=== PATIENT | male | born 1935 | race Caucasian/White ===

== ENCOUNTER → 2019-08-22 14:11 | Outpatient (BNVA) | payer MEDICARE, SELFPAY | PROVIDERS: Family Provider Nurse Practitioner; PCP Nurse Practitioner Family; Visit Provider Nurse Practitioner Family | DX: I10 Essential (primary) hypertension (principal); E78.5 Hyperlipidemia, unspecified | CPT/HCPCS: 80053; 80061; 84443; 85025 ==

== ENCOUNTER → 2020-01-24 09:25 | Outpatient (BNVA) | payer MEDICARE, SELFPAY | PROVIDERS: Family Provider Nurse Practitioner; PCP Nurse Practitioner Family; Visit Provider Nurse Practitioner | DX: G89.29 Other chronic pain (principal); E78.5 Hyperlipidemia, unspecified; I10 Essential (primary) hypertension; M79.641 Pain in right hand; Z98.1 Arthrodesis status; Z96.611 Presence of right artificial shoulder joint; M19.041 Primary osteoarthritis, right hand; M19.021 Primary osteoarthritis, right elbow; M54.2 Cervicalgia; M25.511 Pain in right shoulder; M25.521 Pain in right elbow | CPT/HCPCS: 72040; 73030; 73080; 73130; 80053; 80061; 81000; 85025 ==

== ENCOUNTER 2020-03-08 12:45 | Outpatient (CLI) | payer MEDICARE, SELFPAY ==
--- NOTE | 2020-03-08 12:45 | USCV_ITS ---
Silvio Chavira Age: 84 Gender: M : 1935 Exam Date: 03/08/2020 12:46 Ordering Phys: Madelin Bellamy Technologist: Tati Ashby [place] [facility] [place]: SOB WITH ACTIVITY BP: / HR: 68 Rhythm: Sinus Technical Quality: Adequate MEASUREMENTS (Male / Female) Normal Values 2D ECHO LV Diastolic Diameter PLAX 4.8 cm 4.2 - 5.9 / 3.9 - 5.3 cm LV Systolic Diameter PLAX 3.0 cm LV Chamber Size 3.2 cm IVS Diastolic Thickness 1.1 cm 0.6 - 1.0 / 0.6 - 0.9 cm IVS Systolic Thickness 1.8 cm LVPW Diastolic Thickness 1.5 cm 0.6 - 1.0 / 0.6 - 0.9 cm LVPW Systolic Thickness 1.5 cm RV Chamber Size 2.8 cm LVOT Diameter 2.0 cm LV Ejection Fraction 2D Teich 68.3 % LV Ejection Fraction MOD 2C 46.7 % LV Ejection Fraction 2C AL 49.7 % LA Diameter 2.9 cm LA Width 3.3 cm LA Height 3.3 cm RA Width 3.2 cm RA Height 3.4 cm Aorta at Sinotubular Diameter 4.1 cm M-MODE LV Diastolic Diameter MM 6.1 cm 4.2 - 5.9 / 3.9 - 5.3 cm LV Systolic Diameter MM 3.9 cm LV Ejection Fraction MM Teich 64.3 % IVS Diastolic Thickness MM 1.2 cm 0.6 - 1.0 / 0.6 - 0.9 cm IVS Systolic Thickness MM 1.7 cm LVPW Diastolic Thickness MM 0.8 cm 0.6 - 1.0 / 0.6 - 0.9 cm LVPW Systolic Thickness MM 1.1 cm RV Diastolic Diameter MM 1.5 cm Aortic Annulus Diameter 4.0 cm LA Ao Ratio MM 0.7 MV E Point Septal Separation 0.6 cm FINDINGS Left Ventricle Normal left ventricular cavity size. Increased left ventricular wall thickness. Moderate concentric left ventricular hypertrophy. Normal left ventricular systolic function. Left ventricular ejection fraction is estimated at 60 %. No diagnostic regional wall motion normality. Right Ventricle Normal right ventricular size and systolic function. Right Atrium Normal right atrial size. Right atrial pressure estimated at 3 mm Hg. Left Atrium Mildly increased left atrial size. Mitral Valve Mild mitral annular calcification. Moderately thickened mitral valve. Aortic Valve Mildly thickened and sclerotic trileaflet aortic valve. Tricuspid Valve Structurally normal tricuspid valve. Pulmonic Valve Structurally normal pulmonic valve. Pericardium Trivial pericardial effusion noted along right ventricular free wall. Aorta Normal-sized aortic root. CONCLUSIONS 1. This is a limited echocardiogram. 2. Normal left ventricular cavity size. Moderate concentric left ventricular hypertrophy. Normal left ventricular systolic function. Left ventricular ejection fraction is estimated at 60 %. No diagnostic regional wall motion normality. 3. Mildly increased left atrial size. 4. Right atrial pressure estimated at 3 mm Hg. 5. Trivial pericardial effusion noted along right ventricular free wall. 6. When compared to previous echocardiogram dated 02/25/2019, there is trivial pericardial effusion now. Chanel Irvin MD (Electronically Signed) Final Date: 11 March 2020 17:22 S
== END 2020-03-08 12:46 | disposition home or self-care (01) ==
LOC: RAD 12:47
PROVIDERS: PCP Nurse Practitioner; Visit Provider Nurse Practitioner
DX: I31.3 Pericardial effusion (noninflammatory) (principal); I51.7 Cardiomegaly; R06.02 Shortness of breath
CPT/HCPCS: 93308

== ENCOUNTER → 2020-06-19 15:28 | Outpatient (BNVA) | payer MEDICARE, SELFPAY | PROVIDERS: PCP Nurse Practitioner; Visit Provider Nurse Practitioner Family | DX: Z11.59 Encounter for screening for other viral diseases (principal); R06.02 Shortness of breath | CPT/HCPCS: 87635 ==

== ENCOUNTER 2020-06-21 11:20 | Emergency (ER) | payer MEDICARE, SELFPAY ==
[2020-06-21 11:26] VITALS: BP 208/98; PULSE 71; RESP 18; TEMP 36.3; O2SAT 98; BMI 21.2
[2020-06-21 12:30] VITALS: O2SAT 90
--- NOTE | 2020-06-21 13:37 | XR_ITS ---
WS: [id number] XR chest 1V portable [id number] REASON FOR EXAM: syncope FINDINGS: Compared to the previous examination of 02/24/2019 no significant interval change is identified. Tortuous ectatic thoracic aorta. Enlarged heart. No active pulmonary parenchymal or pleural disease is noted. Degenerative arthropathy in the shoulders and degenerative spondylosis, moderate in the mid and lower thoracic spine. XR/XR chest 1V portable [id number] IMPRESSION: No acute chest abnormality identified.
[2020-06-21 15:01] LABS: Basophils % 0.2 %; Eosinophils % 0.7 %; Hemoglobin 15.4 g/dL (11.7-16.6); Lymphocytes # 1.4 10^3/uL (0.8-4.8); Lymphocytes % 31.9 %; Mean Corpuscular HGB Conc 33.5 g/dL (30.0-36.0); Mean Corpuscular Hemoglobin 33.2 pg (28.0-34.0); Mean Corpuscular Volume 99.1 fL (80-94); Mean Platelet Volume 10.4 fL (7.4-10.4); Monocytes # 0.5 10^3/uL (0.2-0.9); Monocytes % 10.3 %; Neutrophils # 2.53 10^3/uL (1.8-7.7); Neutrophils % 56.9 %; Nucleated Red Blood Cells % 0 %; Platelet Count 158 10^3/cmm (130-400); Red Blood Count 4.64 10^6/uL (4.1-5.3); Red Cell Distribution Width 13.3 % (12.1-15.1); White Blood Count 4.5 10^3/uL (4.0-10.0)
[2020-06-21 15:20] LABS: D Dimer 0.56 ug/mIFEU (0-0.59)
[2020-06-21 15:22] LABS: Alanine Aminotransferase 24 U/L (0-41); Albumin Level 4.4 g/dL (3.5-5.2); Alkaline Phosphatase 69 IU/L (40-130); Anion Gap 14.3 (5-19); Aspartate Amino Transferase 26 U/L (0-40); Blood Urea Nitrogen 17 mg/dL (8-23); Calcium 9.3 mg/dL (8.5-10.5); Carbon Dioxide 30 mmol/L (22-29); Chloride 101 mmol/L (98-107); Globulin 2.6 g/dL (1.3-4.6); Glucose 113 mg/dL (65-115); Lactate (Lactic Acid level) 1.5 mmol/L (0.5-2.2); Osmolality Calculated 294 mOsm/kg (285-295); Potassium 4.3 mmol/L (3.5-5.1); Sodium 141 mmol/L (136-145); Total Bilirubin 1.8 mg/dL (0.15-1.2)
[2020-06-21 15:23] VITALS: O2SAT 95
[2020-06-21 15:52] LABS: Fibrinogen 272 mg/dL (174-498)
[2020-06-21 15:54] LABS: C Reactive Protein 0.3 mg/L (0.0-4.9); Ferritin 119 ng/mL (30-400)
--- NOTE | 2020-06-21 17:40 | ED_ITS ---
HPI - COVID General: Chief Complaint: COVID symptoms Stated Complaint: cough, sob, aches, nausea Time Seen by Provider: 06/21/20 13:54 Triage information: No fever, cough or shortness of breath . No known COVID + exposure last 14 days History of Present Illness: HPI Narrative: This patient is an 84-year-old gentleman who presents today with concerns for Covid. He was tested on Wednesday at the [facility] and was expecting test results today. His family brought him in because he is having worsening shortness of breath. 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 He is not sure when he might of contracted it but he has been around his grandson who is had some cold symptoms. MD complaint: has COVID symptoms Prior covid testing: yes, results pending at [facility] location Prior testing date: 06/19/20 COVID 19 common symptoms: positive non-productive cough, dyspnea, fatigue and headache(s); negative nausea or vomiting COVID 19 other sytmptoms: negative chest pain Onset (ago): day(s) (4) COVID Results: No Data to Display Review of Systems General: Reports: 10 or more systems reviewed and unremarkable except in HPI and below Const: Reports: fatigue Eyes: Denies: change in vision ENMT: Denies: odynophagia Card: Denies: chest pain or swelling of feet/ankles Resp: Reports: dyspnea and non-productive cough GI: Denies: abdominal pain, nausea or vomiting : Denies: flank pain Musc: Denies: neck pain or back pain Skin/Breast: Denies: rash Neuro: Reports: headache(s) Jimmy/Lymph: Denies: easy bruising or easy bleeding PFS ED PFSH: Medical History (Updated 06/21/20 @ 17:42 by Haley Corado MD) High cholesterol Hypertension Physical Exam Const: COMMON NORMALS: no acute distress, patient oriented x3, no limitations and alert GENERAL APPEARANCE: cooperative and comfortable HENMT: HEAD & SCALP: normal to inspection FACE & SINUS: normal facial exam Eye: GENERAL EYE: appearance normal, both eyes and all related structures Neck/C-Spine: COMMON NORMALS: supple, no meningeal signs and no JVD Chest: COMMONS NORMALS: normal inspection of the chest Resp: COMMON NORMALS: normal respiratory effort, No use of accessory muscles and clear to auscultation bilaterally AUSCULTATION: clear to auscultation bilaterally Cardio: COMMON NORMALS: no JVD, regular rate, regular rhythm and No murmurs present (Cardio) RATE: regular rate RHYTHM: regular rhythm GI: COMMON NORMALS: Normal to inspection, nondistended, normoactive bowel sounds present, Soft to palpation and non-tender INSPECTION: Yes normal to inspection AUSCULTATION: Yes normoactive bowel sounds PALPATION: Yes Soft to palpation Back/Pelvis: COMMON NORMALS: thoracic and lumbar spine normal to inspection Extremity: COMMON NORMALS: normal to inspection Neuro: COMMON NORMALS: patient oriented x3, moves all extremities, no focal motor deficits and no sensory deficits noted SENSORIUM/ORIENTATION: Yes alert MENINGEAL SIGNS: Yes no meningeal signs Psych: COMMON NORMALS: mental status grossly normal, cooperative and normal affect Skin: COMMON NORMALS: no rashes or lesions noted and turgor normal GENERAL SKIN EXAM: no rashes or lesions noted and turgor normal Course ED course: Patient's room air sat is 99 to 100%. He is awake, alert. He is in no distress. He is afebrile. We attempted to get the test results from the [facility] but they had closed for the day. There is no record of the test or test results in the [facility] system. His chest x-ray is clear. Labs are quite u nremarkable. He looks quite well. I discussed with he and his [id number] that we should consider him a person under investigation and treat him as though he were positive. Although is not requiring oxygen at this time I will send him home with oxygen as he is early in the course and may worsen. I am also can put him on dexamethasone. He will continue to self isolate and will follow up with his primary care provider for test results and further management. We discussed return precautions including inability to keep the oxygen saturation over 90 even with as much as 6 L of oxygen. Vital Signs: Vital signs: Vital Signs Temperature 97.4 F L 06/21/20 11:26 Pulse Rate 71 06/21/20 11:26 Respiratory Rate 18 06/21/20 11:26 Blood Pressure 208/98 06/21/20 11:26 Pulse Oximetry 95 06/21/20 15:23 [facility] - COVID Lab Data Result diagrams: 06/21/20 14:45 06/21/20 14:45 Labs: Lab Results 06/21/20 06/21/20 06/21/20 Range/Units 14:45 14:45 14:45 WBC 4.5 (4.0-10.0) 10^3/uL RBC 4.64 (4.1-5.3) 10^6/uL Hgb 15.4 (11.7-16.6) g/dL Hct 46.0 (42.0-52.0) % MCV 99.1 H (80-94) fL MCH 33.2 (28.0-34.0) pg MCHC 33.5 (30.0-36.0) g/dL RDW 13.3 (12.1-15.1) % Plt Count 158 (130-400) 10^3/cmm MPV 10.4 (7.4-10.4) fL Neut % (Auto) 56.9 % Lymph % (Auto) 31.9 % Harper % (Auto) 10.3 % Eos % (Auto) 0.7 % Baso % (Auto) 0.2 % Neut # (Auto) 2.53 (1.8-7.7) 10^3/uL Lymph # (Auto) 1.4 (0.8-4.8) 10^3/uL Harper # (Auto) 0.5 (0.2-0.9) 10^3/uL Eos # (Auto) 0.0 (0.0-0.8) 10^3/uL Baso # (Auto) 0.0 (0.0-0.1) 10^3/uL Nucleated RBC % (auto) 0 % Nucleated RBCs # 0.0 /100WBC Fibrinogen (174-498) mg/dL D-Dimer 0.56 (0-0.59) ug/mIFEU Sodium 141 (136-145) mmol/L Potassium 4.3 (3.5-5.1) mmol/L Chloride 101 (98-107) mmol/L Carbon Dioxide 30 H (22-29) mmol/L Anion Gap 14.3 (5-19) BUN 17 (8-23) mg/dL Creatinine 0.9 (0.7-1.2) mg/dL GFR Calculation Not Reportable Glucose 113 (65-115) mg/dL Calculated Osmolality 294 (285-295) mOsm/kg Lactate (0.5-2.2) mmol/L Calcium 9.3 (8.5-10.5) mg/dL Ferritin (30-400) ng/mL Total Bilirubin 1.8 H (0.15-1.2) mg/dL AST 26 (0-40) U/L ALT 24 (0-41) U/L Alkaline Phosphatase 69 (40-130) IU/L C-Reactive Protein (0.0-4.9) mg/L Total Protein 7.0 (6.6-8.7) g/dL Albumin 4.4 (3.5-5.2) g/dL Globulin 2.6 (1.3-4.6) g/dL 06/21/20 06/21/20 06/21/20 Range/Units 14:45 14:45 14:45 WBC (4.0-10.0) 10^3/uL RBC (4.1-5.3) 10^6/uL Hgb (11.7-16.6) g/dL Hct (42.0-52.0) % MCV (80-94) fL MCH (28.0-34.0) pg MCHC (30.0-36.0) g/dL RDW (12.1-15.1) % Plt Count (130-400) 10^3/cmm MPV (7.4-10.4) fL Neut % (Auto) % Lymph % (Auto) % Harper % (Auto) % Eos % (Auto) % Baso % (Auto) % Neut # (Auto) (1.8-7.7) 10^3/uL Lymph # (Auto) (0.8-4.8) 10^3/uL Harper # (Auto) (0.2-0.9) 10^3/uL Eos # (Auto) (0.0-0.8) 10^3/uL Baso # (Auto) (0.0-0.1) 10^3/uL Nucleated RBC % (auto) % Nucleated RBCs # /100WBC Fibrinogen 272 (174-498) mg/dL D-Dimer (0-0.59) ug/mIFEU Sodium (136-145) mmol/L Potassium (3.5-5.1) mmol/L Chloride (98-107) mmol/L Carbon Dioxide (22-29) mmol/L Anion Gap (5-19) BUN (8-23) mg/dL Creatinine (0.7-1.2) mg/dL GFR Calculation Glucose (65-115) mg/dL Calculated Osmolality (285-295) mOsm/kg Lactate 1.5 (0.5-2.2) mmol/L Calcium (8.5-10.5) mg/dL Ferritin 119 (30-400) ng/mL Total Bilirubin (0.15-1.2) mg/dL AST (0-40) U/L ALT (0-41) U/L Alkaline Phosphatase (40-130) IU/L C-Reactive Protein 0.3 (0.0-4.9) mg/L Total Protein (6.6-8.7) g/dL Albumin (3.5-5.2) g/dL Globulin (1.3-4.6) g/dL COVID Results: No Data to Display Discharge Plan Discharge Patient Disposition: Home Clinical Impression: Suspected severe acute respiratory syndrome coronavirus 2 (SARS-CoV-2) infection Condition: Stable Prescriptions: New dexamethasone 6 mg tablet 6 mg PO DAILY Qty: 7 RF: 0 No Action Multiple Vitamins Tablet 1 tab PO DAILY RF: 0 azithromycin 250 mg tablet See Rx Instructions .ROUTE .COMPLEX RF: 0 simvastatin 10 mg tablet 10 mg PO DAILY RF: 0 amlodipine 2.5 mg tablet 2.5 mg PO DAILY RF: 0 lisinopril 40 mg tablet 40 mg PO DAILY RF: 0 Vitamin D3 125 mcg (5,000 unit) Tablet 125 mcg PO DAILY RF: 0 Probiotic 3 billion cell Capsule 3,000 mmu cells PO DAILY RF: 0 Vitamin C 1 tab PO DAILY RF: 0 Discharge Orders: Discharge Order (Routine); Ordered 06/21/20 Ordered By: Haley Corado Other Ambulatory Orders: DME: Oxygen (Order) Location: None Selected Ordered By: Haley Corado Referrals: Madelin Bellamy, APPLICATIONS PROGRAMMER ANALYST-C [Primary Care Provider] - Discharge Diet: Usual diet Discharge Activity: Limit activity as instructed Patient Instructions: Viral Pneumonia (ED) Activity Restrictions/Additional Instructions: Take the dexamethasone as prescribed. Use the oxygen at home as needed to maintain your oxygen level at greater than 90%. If you cannot keep your oxygen level greater than 90% with up to 6 L/min then you need to return to the emergency room immediately. Return as well for any other signs of worsening or other concerns. Coding Level of Care Code ED Police Officer for Kamilla Johnson
[2020-06-21 18:21] VITALS: BP 185/87; PULSE 72; RESP 18; O2SAT 95
--- NOTE | 2020-06-26 14:56 | DCPLANNER ---
late entry - director case management was asked to arrange for home O2 for patient. manager payment spoke with patient, he stated that director case management could order his oxygen from [employer] manager payment faxed order and prescription to [employer] for the company to bring oxygen to patient in ED. manager payment filled out Patient Choice letter, signed it due patient being a COVID patient.
--- NOTE | 2020-06-27 11:51 | PC.SOCIAL ---
Spoke with daughter in law Nano and we discussed the concerns related to ED visit. Called patient and spoke to in detail. We discussed his Covid test returned negative. We discussed that he should get an appt with Madelin or at least call to review the result and let her know was seen in the ED. He has one day left of Dexamethasone and he is only wearing O2 at night. 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 We discussed he likely does not need it at night either and agrees. We discussed this conversation should be had with PCP as well to see if he should discontinue O2. He does not have Pulse ox at home but is not short of breath. We discussed more than likely will not need to quarantine but to discuss for sure with Madelin. We discussed the importane of wearing mask in public, social distancing of at least 6 feet, good hand hygiene washing for 20 seconds minimum each time, and also sanitize highly used surfaces. We discussed this is precautionary measures for all to help prevent jessica the virus. We discussed he may be a little less energetic once off the steroids but overall appears he is doing well. She will call Madelin's office and see about the follow up. She was appreciative of the call. voiced no further questions or concerns.
== END 2020-06-21 18:23 | disposition home or self-care (01) ==
PROVIDERS: Nurse Practitioner Family; Emergency Provider Emergency Medicine; PCP Nurse Practitioner
DX: Z20.828 Contact with and (suspected) exposure to other viral communicable diseases (principal); I10 Essential (primary) hypertension
CPT/HCPCS: 12345; 71045; 80053; 82728; 83605; 85025; 85378; 85384; 86140; 99282; 99283

== ENCOUNTER → 2020-07-01 16:39 | Outpatient (BNVA) | payer MEDICARE, SELFPAY | PROVIDERS: PCP Nurse Practitioner; Visit Provider Nurse Practitioner | DX: I10 Essential (primary) hypertension (principal); E78.5 Hyperlipidemia, unspecified; Z99.81 Dependence on supplemental oxygen; Z79.899 Other long term (current) drug therapy | CPT/HCPCS: 81000 ==

== ENCOUNTER 2020-07-02 10:36 | Outpatient (CLI) | payer MEDICARE, SELFPAY ==
--- NOTE | 2020-07-02 11:00 | MR_ITS ---
WS: [id number] MRI CERVICAL SPINE HISTORY: M47.9 - Spondylosis, unspecified COMPARISON: CT cervical spine 05/09/2019 Straightening of the normal cervical lordosis. Prior anterior cervical fusion with interbody fusion f rom C4 through C6. Interbody grafts at C4-5, C5-6 and C6-7. Disc space narrowing and desiccation thro ughout the cervical spine. Signal within the cervical cord is normal. Visualized posterior fossa is unremarkable. Craniocervical junction, C1 and C2 relationship, odontoid process and soft tissues are normal. C2-C3: Central disc protrusion with mild bilateral facet joint arthritis. Mild bilateral foraminal na rrowing. C3-C4: Diffuse osteophytic ridging and annular disc bulging. Disc osteophyte extends into the proxima l LEFT foramen. Bilateral facet joint arthritis. Combination of findings contributing to mild central and bilateral foraminal stenosis. C4-C5: Diffuse osteophytic ridging and annular disc bulging. Effacement of ventral CSF and bilateral facet joint arthritis. Moderate central and bilateral foraminal stenosis. C5-C6: Diffuse annular disc bulging. Central disc osteophyte protrusion. Osteophytes and facet diseas e contributing to mild central and LEFT foraminal stenosis. Moderate RIGHT foraminal stenosis. C6-C7: Mild annular disc bulge with a central disc protrusion. Facet joint arthritis is mild. No sign ificant stenosis. C7-T1: Mild facet joint arthritis with annular disc bulging. Tiny central disc protrusion is suspecte d. No significant stenosis. Paraspinal soft tissue are normal. MR/MR cervical spin wo con* [id number] IMPRESSION: 1. Prior anterior cervical fusion with interbody spacers from C4 to C6. No int erval change in alignment since the prior study. 2. Multilevel moderate to severe spondylosis with mild encroachment upon the v entral thecal sac due to disc osteophyte disease. 3. Mild bilateral facet joint arthritis throughout the cervical spine. 4. Moderate central and bilateral foraminal stenosis at C4-5. 5. Mild central LEFT foraminal stenosis with moderate RIGHT foraminal stenosis at C5-6. 6. Central tiny disc protrusion at C7-T1. 7. As compared to the prior CT from 05/09/2019 there has probably not been a si gnificant adverse change in the extent of the stenosis or facet disease.
== END 2020-07-02 10:37 | disposition home or self-care (01) ==
LOC: RADSHAW 10:40
PROVIDERS: PCP Nurse Practitioner; Visit Provider Nurse Practitioner
DX: M50.23 Other cervical disc displacement, cervicothoracic region (principal); M48.02 Spinal stenosis, cervical region; M47.812 Spondylosis without myelopathy or radiculopathy, cervical region
CPT/HCPCS: 72141

== ENCOUNTER → 2020-09-12 14:37 | Outpatient (BNVA) | payer MEDICARE, SELFPAY | PROVIDERS: PCP Nurse Practitioner; Referring Provider Family Medicine; Visit Provider Orthopaedic Surgery | DX: M54.2 Cervicalgia (principal); G89.29 Other chronic pain | CPT/HCPCS: 72050 ==

== ENCOUNTER → 2020-10-21 12:04 | Outpatient (BNVA) | payer MEDICARE, SELFPAY | PROVIDERS: PCP Nurse Practitioner; Visit Provider Specialist | DX: R20.2 Paresthesia of skin (principal); R20.0 Anesthesia of skin; M54.2 Cervicalgia; G89.29 Other chronic pain; G56.21 Lesion of ulnar nerve, right upper limb; M47.12 Other spondylosis with myelopathy, cervical region | CPT/HCPCS: 95885; 95908; 99202 ==

== ENCOUNTER → 2020-11-21 15:22 | Outpatient (BNVA) | payer MEDICARE, SELFPAY | PROVIDERS: PCP Nurse Practitioner; Visit Provider Nurse Practitioner Family | DX: R06.02 Shortness of breath (principal); R10.13 Epigastric pain | CPT/HCPCS: 71046; 80053; 83880; 85025 ==

== ENCOUNTER 2020-12-13 09:48 | Emergency (ER) | payer MEDICARE, SELFPAY ==
[2020-12-13 09:54] VITALS: BP 186/113; PULSE 74; RESP 27; TEMP 36.4; O2SAT 97; BMI 22.6
[2020-12-13 10:04] VITALS: RESP 18
--- NOTE | 2020-12-13 10:36 | W.ED.SOB ---
HPI - SOB/Dyspnea General: Chief Complaint: Shortness of Breath/Dyspnea Stated Complaint: SOB, AB PAIN Time Seen by Provider: 12/13/20 09:52 History of Present Illness: HPI Narrative: 85-year-old male presents complaint of shortness of breath. States his shortness of breath with minimal exertion has been going on for the last couple of days. He has not really had any chest pain pressure or tightness. He is not had any cough denies fever sweats or chills denies any anosmia no diarrhea no vomiting. MD elicited complaint: shortness of breath and chest pain Onset (ago): day(s) Context: occurred during exertion Timing: intermittent Severity: mild Exacerbating factors: exertion Relieving factors: rest Associated symptoms: Reports chest pain; Deny abdominal pain, chest congestion, cough, diaphoresis, dizziness, extremity pain, fever(s), hemoptysis, lightheadedness, myalgias, nausea, orthopnea, palpitations, paresthesias, polydipsia, polyuria, rash, sense of impending doom, syncope or vomiting Treatment prior to arrival: none Review of Systems Const: Denies: fever(s) or diaphoresis ENMT: Denies: throat pain, ear or mastoid pain, nasal discharge or nasal congestion Card: Reports: chest pain; Denies: palpitations, lightheadedness, syncope or orthopnea Resp: Denies: hemoptysis or chest congestion GI: Denies: abdominal pain, nausea or vomiting : Denies: flank pain, dysuria, urinary frequency or urinary urgency Musc: Denies: extremity pain Skin/Breast: Denies: rash or pruritus Neuro: Denies: dizziness Endo: Denies: polyuria or polydipsia PFSH ED PFSH: Medical History Chronic neck pain Dyslipidemia History of nonmelanoma skin cancer History of stroke Left side weakness Hypertension Spinal osteoarthritis Surgical History History of carpal tunnel surgery right year 1999 History of hernia repair 1983,1987,1997 History of hip replacement, total bilateral History of neck surgery 2011 History of prostatectomy History of shoulder surgery right History of transurethral resection of prostate Family History Other Cancer Hypertension Social History Smoking and tobacco status: never smoked Second hand smoke exposure: No Smoking risk assessment/counseling performed?: No Alcohol intake: never Desire information about alcohol rehabilitation?: No Counseling given: No Desire information about substance/drug rehabilitation?: No Counseling given: No Caregiver/support person: No Lives independently: Yes Household members: spouse Housing: House Marital status: service: No Current occupational status: employed Current occupation: [employer] Pets and animals: Yes History of recent travel: No Current gender identity: Male Physical Exam Const: COMMON NORMALS: no acute distress GENERAL APPEARANCE: cooperative and comfortable ORIENTATION/CONSCIOUSNESS: Yes awake, Yes oriented to person, Yes oriented to place and Yes oriented to time HENMT: COMMON NORMALS: normocephalic, atraumatic and hearing grossly normal bilaterally HEAD & SCALP: normocephalic and atraumatic Eye: COMMON NORMALS: Equal, round and reactive pupils present, EOMs intact bilaterally, conjunctivae normal and no scleral icterus CONJUNCTIVA: Yes conjunctivae normal PUPIL: Yes Equal, round and reactive pupils present Neck/C-Spine: COMMON NORMALS: full ROM, no lymphadenopathy, supple and no JVD Lymph: LYMPHATIC: no lymphadenopathy noted and no lymphedema noted Resp: COMMON NORMALS: normal respiratory effort, No retractions, No use of accessory muscles and clear to auscultation bilaterally AUSCULTATION: clear to auscultation bilaterally Cardio: COMMON NORMALS: no JVD, regular rate, regular rhythm and No murmurs present (Cardio) RATE: regular rate RHYTHM: regular rhythm GI: COMMON NORMALS: Soft to palpation and No hepatosplenomegaly present AUSCULTATION: Yes normoactive bowel sounds PALPATION: Yes Soft to palpation, No Tenderness to palpation present (GI), No Guarding due to palpation present (GI) and Yes No hepatosplenomegaly present Extremity: COMMON NORMALS: normal to inspection, capillary refill normal, no clubbing, cyanosis or edema, no calf tenderness and no pedal edema Neuro: SENSORIUM/ORIENTATION: Yes oriented to person, Yes oriented to place and Yes oriented to time Skin: COMMON NORMALS: no rashes or lesions noted GENERAL SKIN EXAM: no rashes or lesions noted Course Vital Signs: Vital signs: Vital Signs Temperature 97.6 F 04/30/21 09:54 Pulse Rate 78 12/13/20 16:09 Respiratory Rate 18 12/13/20 16:09 Blood Pressure 178/88 12/13/20 16:09 Pulse Oximetry 98 12/13/20 16:09 MDM - SOB/Dyspnea MDM Narrative: Medical decision making narrative: Troponin decreased on the second troponin. He has no pain at this point we will add isosorbide mononitrate 30 mg daily aspirin daily return if he has any further problems discussed possible admission he is not interested in any kind of procedures so he prefer to go home at this point and follow-up with medical management. Lab Data: Attestation: I reviewed the patient's lab results. Labs: Lab Results 12/13/20 12/13/20 12/13/20 Range/Units 11:00 11:00 11:00 WBC 3.9 L (4.0-10.0) 10^3/ uL RBC 4.81 (4.1-5.3) 10^6/u L Hgb 16.1 (11.7-16.6) g/dL Hct 47.8 (42.0-52.0) % MCV 99.4 H (80-94) fL MCH 33.5 (28.0-34.0) pg MCHC 33.7 (30.0-36.0) g/dL RDW 13.2 (12.1-15.1) % Plt Count 150 (130-400) 10^3/c mm MPV 10.3 (7.4-10.4) fL Neut % (Auto) 56.1 % Lymph % (Auto) 31.8 % Leslie % (Auto) 10.8 % Eos % (Auto) 1.0 % Baso % (Auto) 0.3 % Neut # (Auto) 2.19 (1.8-7.7) 10^3/u L Lymph # (Auto) 1.2 (0.8-4.8) 10^3/u L Leslie # (Auto) 0.4 (0.2-0.9) 10^3/u L Eos # (Auto) 0.0 (0.0-0.8) 10^3/u L Baso # (Auto) 0.0 (0.0-0.1) 10^3/u L Nucleated RBC % (a uto) 0 % Nucleated RBCs # 0.0 /100WBC Sodium 138 (136-145) mmol/L Potassium 4.3 (3.5-5.1) mmol/L Chloride 102 (98-107) mmol/L Carbon Dioxide 28 (22-29) mmol/L Anion Gap 12.3 (5-19) BUN 19 (8-23) mg/dL Creatinine 0.7 (0.7-1.2) mg/dL GFR Calculation Not Reportable Glucose 98 (65-115) mg/dL Calculated Osmolal ity 288 (285-295) mOsm/k g Calcium 8.8 (8.5-10.5) mg/dL Total Bilirubin 2.2 H (0.15-1.2) mg/dL AST 28 (0-40) U/L ALT 25 (0-41) U/L Alkaline Phosphata se 71 (40-130) IU/L Troponin T Baselin e 41 H (0-15) ng/L Troponin T 120 Min [place] (0-15) ng/L Delta Troponin T (0-10) ABS# Total Protein 7.1 (6.6-8.7) g/dL Albumin 4.5 (3.5-5.2) g/dL Globulin 2.6 (1.3-4.6) g/dL 12/13/20 Range/Units 13:32 WBC (4.0-10.0) 10^3/ uL RBC (4.1-5.3) 10^6/u L Hgb (11.7-16.6) g/dL Hct (42.0-52.0) % MCV (80-94) fL MCH (28.0-34.0) pg MCHC (30.0-36.0) g/dL RDW (12.1-15.1) % Plt Count (130-400) 10^3/c mm MPV (7.4-10.4) fL Neut % (Auto) % Lymph % (Auto) % Leslie % (Auto) % Eos % (Auto) % Baso % (Auto) % Neut # (Auto) (1.8-7.7) 10^3/u L Lymph # (Auto) (0.8-4.8) 10^3/u L Leslie # (Auto) (0.2-0.9) 10^3/u L Eos # (Auto) (0.0-0.8) 10^3/u L Baso # (Auto) (0.0-0.1) 10^3/u L Nucleated RBC % (a uto) % Nucleated RBCs # /100WBC Sodium (136-145) mmol/L Potassium (3.5-5.1) mmol/L Chloride (98-107) mmol/L Carbon Dioxide (22-29) mmol/L Anion Gap (5-19) BUN (8-23) mg/dL Creatinine (0.7-1.2) mg/dL GFR Calculation Glucose (65-115) mg/dL Calculated Osmolal ity (285-295) mOsm/k g Calcium (8.5-10.5) mg/dL Total Bilirubin (0.15-1.2) mg/dL AST (0-40) U/L ALT (0-41) U/L Alkaline Phosphata se (40-130) IU/L Troponin T Baselin e (0-15) ng/L Troponin T 120 Min [place] 39.82 H (0-15) ng/L Delta Troponin T -1.18 L (0-10) ABS# Total Protein (6.6-8.7) g/dL Albumin (3.5-5.2) g/dL Globulin (1.3-4.6) g/dL Discharge Plan Discharge Patient Disposition: Home Clinical Impression: Dyspnea on exertion, Atypical chest pain Condition: Stable Prescriptions: New isosorbide mononitrate 30 mg tablet extended release 24 hr 30 mg PO DAILY Qty: 30 RF: 0 aspirin 81 mg tablet,delayed release (DR/EC) 81 mg PO DAILY Qty: 30 RF: 0 No Action coenzyme Q10 [Co Q-10] 100 mg capsule 100 mg PO DAILY@1800 RF: 0 acetaminophen [Tylenol Arthritis Pain] 650 mg tablet extended release 650 mg PO Q12H PRN (Reason: pain) RF: 0 niacinamide 500 mg tablet 500 mg PO DAILY@1800 RF: 0 vitamin B complex [B Complex-Vitamin B12] Tablet 1 tab PO DAILY RF: 0 multivitamin [Multiple Vitamins] Tablet 1 tab PO BID@,18 RF: 0 cholecalciferol (vitamin D3) [Vitamin D3] 125 mcg (5,000 unit) Tablet 125 mcg PO DAILY RF: 0 Probiotic 3 billion cell Capsule 3,000 mmu cells PO DAILY RF: 0 Vitamin C 1 tab PO DAILY RF: 0 simvastatin 10 mg tablet 10 mg PO DAILY@0600 RF: 0 Norvasc 2.5 mg tablet 2.5 mg PO DAILY@1800 RF: 0 Protonix 40 mg tablet,delayed release (DR/EC) 40 mg PO DAILY@0600 RF: 0 lisinopril 40 mg tablet 40 mg PO DAILY@0600 RF: 0 Discharge Orders: Discharge ED (Routine); Ordered 12/13/20 Ordered By: Sean Jameson Referrals: Madelin Bellamy, LEAD RECREATION ASSISTANT-C [Primary Care Provider] - Discharge Diet: Usual diet Discharge Activity: Limit activity as instructed Patient Instructions: Opioid Safety Activity Restrictions/Additional Instructions: Case management will call with appointment for stress test. Coding Level of Care Code ED Natural Resources Instructor for Kamilla Fwmike Exam Comprehensive
--- NOTE | 2020-12-13 10:40 | XR_ITS ---
WS: [id number] Exam: XR chest 1V portable [id number] Date/Time of Exam: 12/13/2020 10:51 AM Reason For Exam: dyspnea Comparison 11/21/2020. The lungs are clear. Heart size is top limits normal. The mediastinum and osseous thorax are unremark able. There is hardware in the lower cervical spine. Monitoring leads superimpose the chest. XR/XR chest 1V portable [id number] IMPRESSION: 1. No acute cardiopulmonary finding.
--- NOTE | 2020-12-13 10:41 | ECG_ITS ---
[facility] Test Date: 2020-12-13 Pat Name: Silvio Chavira Department: Room: Gender: Male Scale Clerk: : 1935 Requested By: Sean Da Silva Order Number: [id number] Jorge A MD: Christiano Waller M.D. Measurements Intervals [place] Rate: 64 P: 70 WA: 156 QRS: -85 QRSD: 141 T: 75 QT: 486 QTc: 504 Interpretive Statements SINUS RHYTHM WITH OCCASIONAL VENTRICULAR PREMATURE COMPLEXES POSSIBLE LEFT ATRIAL ENLARGEMENT [-0.1mV P WAVE IN V1/V2] RIGHT BUNDLE BRANCH BLOCK [120+ ms QRS DURATION, UPRIGHT V1, 40+ ms S IN I/aVL/V4/V5/V6] LEFT ANTERIOR FASCICULAR BLOCK [QRS AXIS <= -45, QR IN I, RS IN II] Compared to ECG 02/25/2019 00:01:55 Ventricular premature complex(es) now present Electronically Signed On 12-13-2020 19:14:34 CDT by Christiano Waller M.D. [id number]
[2020-12-13 11:24] LABS: Basophils % 0.3 %; Hematocrit 47.8 % (42.0-52.0); Hemoglobin 16.1 g/dL (11.7-16.6); Lymphocytes # 1.2 10^3/uL (0.8-4.8); Lymphocytes % 31.8 %; Mean Corpuscular HGB Conc 33.7 g/dL (30.0-36.0); Mean Corpuscular Hemoglobin 33.5 pg (28.0-34.0); Mean Corpuscular Volume 99.4 fL (80-94); Mean Platelet Volume 10.3 fL (7.4-10.4); Monocytes # 0.4 10^3/uL (0.2-0.9); Monocytes % 10.8 %; Neutrophils # 2.19 10^3/uL (1.8-7.7); Neutrophils % 56.1 %; Nucleated Red Blood Cells % 0 %; Platelet Count 150 10^3/cmm (130-400); Red Blood Count 4.81 10^6/uL (4.1-5.3); Red Cell Distribution Width 13.2 % (12.1-15.1); White Blood Count 3.9 10^3/uL (4.0-10.0)
[2020-12-13 11:57] LABS: Alanine Aminotransferase 25 U/L (0-41); Albumin Level 4.5 g/dL (3.5-5.2); Alkaline Phosphatase 71 IU/L (40-130); Aspartate Amino Transferase 28 U/L (0-40); Blood Urea Nitrogen 19 mg/dL (8-23); Calcium 8.8 mg/dL (8.5-10.5); Carbon Dioxide 28 mmol/L (22-29); Chloride 102 mmol/L (98-107); Globulin 2.6 g/dL (1.3-4.6); Glucose 98 mg/dL (65-115); Osmolality Calculated 288 mOsm/kg (285-295); Sodium 138 mmol/L (136-145); Total Bilirubin 2.2 mg/dL (0.15-1.2); Total Protein 7.1 g/dL (6.6-8.7)
[2020-12-13 12:01] LABS: Troponin(5th) Baseline 41 ng/L (0-15)
[2020-12-13 12:08] LABS: Anion Gap 12.3 (5-19); Potassium 4.3 mmol/L (3.5-5.1)
[2020-12-13 12:34] VITALS: BP 160/80; PULSE 64; RESP 24; O2SAT 100
--- NOTE | 2020-12-13 12:41 | ECG_ITS ---
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 Measurements Intervals [place] Rate: 63 P: 65 RI: 161 QRS: -79 QRSD: 142 T: 71 QT: 482 QTc: 496 Interpretive Statements SINUS RHYTHM WITH OCCASIONAL VENTRICULAR PREMATURE COMPLEXES POSSIBLE LEFT ATRIAL ENLARGEMENT [-0.1mV P WAVE IN V1/V2] RIGHT BUNDLE BRANCH BLOCK [120+ ms QRS DURATION, UPRIGHT V1, 40+ ms S IN I/aVL/V4/V5/V6] LEFT ANTERIOR FASCICULAR BLOCK [QRS AXIS <= -45, QR IN I, RS IN II] POSSIBLE SEPTAL MYOCARDIAL INFARCTION , OF INDETERMINATE AGE [30 ms Q WAVE IN V1/V2] Compared to ECG 12/13/2020 10:59:41 Myocardial infarct finding now present Electronically Signed On 12-13-2020 19:16:48 CDT by Christiano Waller M.D. [id number]
[2020-12-13 13:00] VITALS: BP 183/83; PULSE 66; RESP 21; O2SAT 97
[2020-12-13 13:59] LABS: Troponin 5 2HR 39.82 ng/L (0-15); Troponin 5 2HR Delta -1.18 ABS# (0-10)
[2020-12-13 16:00] VITALS: BP 178/88; PULSE 78; RESP 18; O2SAT 98
[2020-12-13 16:09] VITALS: BP 178/88; PULSE 78; RESP 18; O2SAT 98
--- NOTE | 2020-12-17 11:31 | DCPLANNER ---
diabetes manager had message to schedule an outpatient stress test for patient. diabetes manager faxed signed order to centralized scheduling. diabetes manager will call patient with appointment information.
== END 2020-12-13 16:10 | disposition home or self-care (01) ==
PROVIDERS: Emergency Provider Family Medicine; PCP Nurse Practitioner
DX: R06.00 Dyspnea, unspecified (principal); R07.89 Other chest pain; E78.5 Hyperlipidemia, unspecified; Z86.73 Personal history of transient ischemic attack (TIA), and cerebral infarction without residual deficits; I10 Essential (primary) hypertension
CPT/HCPCS: 36415; 71045; 80053; 84484; 85025; 93005; 99283

== ENCOUNTER 2020-12-26 09:41 | Outpatient (CLI) | payer MEDICARE, SELFPAY ==
--- NOTE | 2020-12-26 10:15 | USCV_ITS ---
Silvio Chavira Age: 85 Gender: M : 1935 Exam Date: 12/26/2020 10:05 Ordering Phys: Ramona SpencerPChaparro Technologist: CAMPOS Exam Location: [facility] [place] Indication: SHORTNESS OF BREATH BP: / HR: 69 Rhythm: Sinus Technical Quality: Adequate MEASUREMENTS (Male / Female) Normal Values 2D ECHO LV Diastolic Diameter PLAX 3.1 cm 4.2 - 5.9 / 3.9 - 5.3 cm LV Systolic Diameter PLAX 1.7 cm LV Chamber Size 3.2 cm IVS Diastolic Thickness 1.3 cm 0.6 - 1.0 / 0.6 - 0.9 cm IVS Systolic Thickness 1.3 cm LVPW Diastolic Thickness 2.4 cm 0.6 - 1.0 / 0.6 - 0.9 cm LVPW Systolic Thickness 2.9 cm RV Chamber Size 2.9 cm LVOT Diameter 2.0 cm LV Ejection Fraction 2D Teich 78.9 % LV Ejection Fraction MOD 2C 32.6 % LV Ejection Fraction 2C AL 34.0 % LA Diameter 2.7 cm LA Width 3.3 cm LA Height 5.1 cm RA Width 2.9 cm RA Height 5.4 cm Aorta at Sinotubular Diameter 2.6 cm M-MODE LV Diastolic Diameter MM 5.0 cm 4.2 - 5.9 / 3.9 - 5.3 cm LV Systolic Diameter MM 2.6 cm LV Ejection Fraction MM Teich 79.4 % IVS Diastolic Thickness MM 0.7 cm 0.6 - 1.0 / 0.6 - 0.9 cm IVS Systolic Thickness MM 1.3 cm LVPW Diastolic Thickness MM 1.2 cm 0.6 - 1.0 / 0.6 - 0.9 cm LVPW Systolic Thickness MM 1.8 cm Aortic Annulus Diameter 3.8 cm LA Ao Ratio MM 0.8 MV E Point Septal Separation 1.2 cm DOPPLER AV Peak Velocity 153.0 cm/s LVOT Peak Velocity 87.0 cm/s AV Area Cont Eq vti 2.0 cm squared AV Area Cont Eq pk 1.8 cm squared MV Area PHT 3.0 cm squared Mitral E to A Ratio 1.0 MV E' Velocity 45.5 cm/s Mitral E to MV E' Ratio 12.5 Mitral E to LV E' Lateral Ratio 11.8 Mitral E to LV E' Septal Ratio 13.5 TR Peak Velocity 152.3 cm/s TR Peak Gradient 9.3 mmHg TV Peak E Velocity 37.0 cm/s Right Atrial Pressure 3.0 mmHg Pulmonary Artery Systolic Pressu 12.3 mmHg PV Peak Velocity 73.0 cm/s RV Acceleration Time 0.1 s RV Ejection Time 0.4 s RV AcT/ET 0.3 FINDINGS Left Ventricle Normal left ventricular size. LV systolic function is borderline normal with EF of 50-55%. No regional wall motion abnormalities. Grade 2 diastolic dysfunction Right Ventricle The right ventricle is normal in size and function. Right Atrium The right atrium is normal in size. Left Atrium The left atrium is dilated Mitral Valve Structurally normal mitral valve without significant stenosis or prolapse. There is mild mitral regurgitation. Aortic Valve Aortic valve is thickened without significant stenosis. There is moderate aortic regurgitation. Tricuspid Valve Structurally normal tricuspid valve without significant stenosis or regurgitation. Insufficient TR jet to calculate RVSP Pulmonic Valve Structurally normal pulmonic valve without significant stenosis. There is no pulmonic regurgitation. Pericardium Normal pericardium without effusion. Aorta Normal ascending aorta dimension. CONCLUSIONS LV systolic function is borderline normal with EF of 50-55% Grade 2 diastolic dysfunction Left atrium is dilated Moderate aortic regurgitation Mild mitral regurgitation Compared to prior echocardiogram from 02/25/2019, no significant changes are noted Christiano Waller MD (Electronically Signed) Final Date: 29 Dec 2020 15:39 S
== END 2020-12-26 09:42 | disposition home or self-care (01) ==
LOC: RAD 09:51
PROVIDERS: PCP Nurse Practitioner; Visit Provider Nurse Practitioner Family
DX: I51.7 Cardiomegaly (principal); R06.02 Shortness of breath; I35.1 Nonrheumatic aortic (valve) insufficiency; I34.0 Nonrheumatic mitral (valve) insufficiency
CPT/HCPCS: 93306

== ENCOUNTER 2021-01-13 09:31 | Emergency (ER) | payer MEDICARE, SELFPAY ==
[2021-01-13 09:47] VITALS: BP 149/107; PULSE 80; RESP 15; TEMP 36.8; O2SAT 98; BMI 22.1
--- NOTE | 2021-01-13 09:58 | XRR_ITS ---
PROCEDURE INFORMATION: Exam: XR Right Hip Exam date and time: 01/13/2021 10:08 AM Age: 85 years old Clinical indication: Injury or trauma; Fall; Blunt trauma (contusions or hematomas); Right; Prior surgery; Surgery date: 6+ months; Surgery type: Total hip replacement; Additional info: Fall pain TECHNIQUE: Imaging protocol: XR Right hip. Views: 1 view hip with pelvis when performed. COMPARISON: CR Pelvis w/ Obliques [id number] 03/08/2017 3:20 PM FINDINGS: Bones/joints: A right hip prosthesis projects in satisfactory position. No recent fracture, dislocation or other acute bone or joint abnormalities are seen. Soft tissues: Unremarkable. XR/XR hip RT 2-3V wo/w pel* [id number] IMPRESSION: Satisfactory appearance of the hip prosthesis. No acute abnormality.
--- NOTE | 2021-01-13 10:13 | W.ED.FALL ---
HPI - Fall General: Chief Complaint: Fall Stated Complaint: Fall/R. Leg Pain Time Seen by Provider: 01/13/21 09:40 History of Present Illness: HPI Narrative: 85-year-old male states 2 days ago he stumbled and fell backwards and landed on his buttock and predominantly on his right hip he did not strike his head there is no loss consciousness he was able to get up again after that and has been ambulatory although not without significant pain. He has previously had bilateral hip arthroplasties. He denies any difficulty with bowel or bladder is no radiation of pain in the lower extremities. MD complaint: fall Onset (ago): day(s) (2) Fall from: standing Fall witnessed: yes, by family Place fall occurred: home Loss of consciousness: None Prolonged down time: no Symptoms prior to fall: none Context: tripped/slipped Severity: moderate Quality: aching and throbbing Associated symptoms-after fall: Denies abdominal pain, chest pain, confusion, difficulty walking, headache(s), hematuria, lightheadedness, neck pain, numbness, short of breath, vertigo or weakness Review of Systems Const: Denies: fever(s), chills, body aches, change in appetite, fatigue or malaise ENMT: Denies: throat pain, ear or mastoid pain, nasal discharge or nasal congestion Card: Denies: chest pain or lightheadedness Resp: Denies: dyspnea, productive cough or non-productive cough GI: Denies: abdominal pain : Denies: hematuria Musc: Denies: neck pain Skin/Breast: Denies: rash or pruritus Neuro: Denies: headache(s), difficulty walking, vertigo or confusion PFSH ED PFSH: Medical History Chronic neck pain Dyslipidemia History of nonmelanoma skin cancer History of stroke Left side weakness Hypertension Spinal osteoarthritis Surgical History History of carpal tunnel surgery right year 1999 History of hernia repair 1983,1987,1997 History of hip replacement, total bilateral History of neck surgery 2011 History of prostatectomy History of shoulder surgery right History of transurethral resection of prostate Family History Other Cancer Hypertension Social History Smoking and tobacco status: never smoked Second hand smoke exposure: No Smoking risk assessment/counseling performed?: No Alcohol intake: never Desire information about alcohol rehabilitation?: No Counseling given: No Desire information about substance/drug rehabilitation?: No Counseling given: No Caregiver/support person: No Lives independently: Yes Household members: spouse Housing: House Marital status: service: No Current occupational status: employed Current occupation: [employer] Pets and animals: Yes History of recent travel: No Current gender identity: Male Physical Exam Const: COMMON NORMALS: no acute distress GENERAL APPEARANCE: cooperative and comfortable ORIENTATION/CONSCIOUSNESS: Yes awake, Yes oriented to person, Yes oriented to place and Yes oriented to time HENMT: COMMON NORMALS: normocephalic, atraumatic and hearing grossly normal bilaterally HEAD & SCALP: normocephalic and atraumatic Neck/C-Spine: COMMON NORMALS: no JVD Resp: COMMON NORMALS: normal respiratory effort, No retractions, No use of accessory muscles and clear to auscultation bilaterally AUSCULTATION: clear to auscultation bilaterally Cardio: COMMON NORMALS: no JVD, regular rate, regular rhythm and No murmurs present (Cardio) RATE: regular rate RHYTHM: regular rhythm GI: COMMON NORMALS: Soft to palpation and No hepatosplenomegaly present AUSCULTATION: Yes normoactive bowel sounds PALPATION: Yes Soft to palpation, No Tenderness to palpation present (GI), No Guarding due to palpation present (GI) and Yes No hepatosplenomegaly present Extremity: COMMON NORMALS: normal to inspection, capillary refill normal, no clubbing, cyanosis or edema, no calf tenderness and no pedal edema Neuro: SENSORIUM/ORIENTATION: Yes oriented to person, Yes oriented to place and Yes oriented to time Skin: COMMON NORMALS: no rashes or lesions noted GENERAL SKIN EXAM: no rashes or lesions noted Course Vital Signs: Vital signs: Vital Signs Temperature 98.3 F 01/13/21 09:47 Pulse Rate 77 01/13/21 11:31 Respiratory Rate 20 H 01/13/21 11:31 Blood Pressure 157/93 01/13/21 11:31 Pulse Oximetry 98 01/13/21 11:31 MDM - Fall MDM Narrative: Medical decision making narrative: No evidence of acute fracture on x-ray. Will discharge home and time laboratories as needed [id number] hydrocodone as needed for pain encourage use of cane or walker patient tells me he already has one at home follow-up with primary care if not improving Discharge Plan Discharge Patient Disposition: Home Clinical Impression: Fall Condition: Stable Prescriptions: New hydrocodone-acetaminophen 5-325 mg tablet 1 tab PO Q6H PRN (Reason: pain) Qty: 15 RF: 0 No Action isosorbide mononitrate 30 mg tablet extended release 24 hr 30 mg PO DAILY Qty: 90 RF: 0 Norvasc 2.5 mg tablet 2.5 mg PO DAILY@1800 Qty: 90 RF: 0 lisinopril 40 mg tablet 40 mg PO DAILY@0600 Qty: 90 RF: 0 simvastatin 10 mg tablet 10 mg PO .at bedtime Qty: 90 RF: 0 spironolactone 25 mg tablet 25 mg PO DAILY Qty: 90 RF: 0 (DME) wheelchair See Rx Instructions .Route .MEDSUPPLY Qty: 1 RF: 0 coenzyme Q10 [Co Q-10] 100 mg capsule 100 mg PO DAILY@1800 RF: 0 acetaminophen [Tylenol Arthritis Pain] 650 mg tablet extended release 650 mg PO Q12H PRN (Reason: pain) RF: 0 niacinamide 500 mg tablet 500 mg PO DAILY@1800 RF: 0 vitamin B complex [B Complex-Vitamin B12] Tablet 1 tab PO DAILY RF: 0 multivitamin [Multiple Vitamins] Tablet 1 tab PO BID@06,18 RF: 0 cholecalciferol (vitamin D3) [Vitamin D3] 125 mcg (5,000 unit) Tablet 125 mcg PO DAILY RF: 0 Probiotic 3 billion cell Capsule 3,000 mmu cells PO DAILY RF: 0 Vitamin C 1 tab PO DAILY RF: 0 aspirin 81 mg tablet,delayed release (DR/EC) 81 mg PO DAILY Qty: 30 RF: 0 Discharge Orders: Discharge ED (Routine); Ordered 01/13/21 Ordered By: Sean Jameson Referrals: Madelin Bellamy FNP-C [Primary Care Provider] - Patient Instructions: Opioid Safety Activity Restrictions/Additional Instructions: Follow-up with your primary care physician if not improving. Coding Level of Care Code ED Continuous Mining Machine Operator for Chg Fwd Exam Comprehensive
[2021-01-13 11:31] VITALS: BP 157/93; PULSE 77; RESP 20; O2SAT 98
== END 2021-01-13 11:34 | disposition home or self-care (01) ==
PROVIDERS: Emergency Provider Family Medicine; PCP Nurse Practitioner
DX: M79.604 Pain in right leg (principal); Z79.82 Long term (current) use of aspirin; E78.5 Hyperlipidemia, unspecified; Z86.73 Personal history of transient ischemic attack (TIA), and cerebral infarction without residual deficits; I10 Essential (primary) hypertension; Z96.643 Presence of artificial hip joint, bilateral
CPT/HCPCS: 73502; 99282

== ENCOUNTER 2021-01-17 08:55 | Outpatient (CLI) | payer MEDICARE, SELFPAY ==
[2021-01-17 09:15] VITALS: BMI 19.2
--- NOTE | 2021-01-17 09:30 | ECG_ITS ---
[facility] Test Date: 2021-01-17 Pat Name: Silvio Chavira Department: Room: Gender: Male Technical Marketing Consultant: : 1935 Requested By: Sean Da Silva Order Number: [id number] Jorge A MD: CLEMENCIA JONES Interpretive Statements NAME OF STUDY: LEXISCAN SESTAMIBI STRESS TEST INDICATION: Atypical Chest Pain, NOTE: Please note that this is the electrocardiogram portion of the Lexiscan/Sestamibi stress test. The perfusion scan will be documented separately. DATA: Baseline heart rate was 73 beats per minute. Baseline blood pressure was 150/83 millimeters of mercury. Target heart rate was 135. Maximum heart rate achieved was 95. which was 70 % of the predicted target heart rate. Maximum blood pressure was 168/87 millimeters of mercury. The reason for ending the test was completion of the protocol. The patient did not experience any symptoms. ELECTROCARDIOGRAM: BASELINE: Sinus rhythm. Left axis. Right bundle branch block otherwise, no ST-T changes suggestive of ischemia noted. No arrhythmia noted. EXERCISE: After Lexiscan injection, no ST-T changes suggestive of ischemic noted. No arrhythmia noted. PVCs noted CONCLUSION: Please note due to baseline abnormality of the EKG specificity and sensitivity of the EKG portion of LexiScan MIBI stress test will be low 1. EKG not suggestive of ischemia 2. Lexiscan injection unremarkable. 3. Perfusion scan will be documented separately. Electronically Signed On 01-18-2021 20:36:32 CDT by CLEMENCIA JONES [id number]
--- NOTE | 2021-01-17 09:30 | NMCV_ITS ---
NM brice perf SPECT r/s* [id number] Silvio Chavira Age: 85 Gender: M : 1935 Exam Date: 01/17/2021 10:19 Ordering Phys: Sean Jameson DO Technologist: PARK Tyler Exam Location: [facility] Indications: ATYPICAL CHEST PAIN STRESS TEST Please see separate stress test report in [facility] for full findings IMAGE PROTOCOL Rest/Stress 1 Lexiscan Day Radiopharmaceutical Dose (mCi) Administration Site Administered by Rest: Tc-99m 10.8 IV PARK Vargas Sestamibi Stress:Tc-99m 32.4 IV PARK Vargas Sestamibi Rest: 17-Jan-2021 60 Discovery 630 Stress: 17-Jan-2021 30 Discovery 630 0.4mg Lexiscan. Supine position only as patient was unable to lay prone. SPECT RESULTS Technical Quality: Excellent Raw Data Analysis: Normal Image Corrections: No attenuation or motion correction applied Summed Stress Score: 0 Summed Rest Score: 5 Summed Difference Score: 0 PERFUSION FINDINGS Small sized perfusion abnormality of mild to modertae severity of mid to apical inferior, apical lateral and apical diego on rest images with improved tracer uptake in stress images. This is likely suggestive of attenuation artifact. FUNCTIONAL RESULTS (calculated via Gated SPECT) Stress Image LV EF (%): 45 Stress EDV (mL):151 TID: 1.04 Stress ESV (mL):83 FUNCTIONAL FINDINGS: Normal left ventricular size. TID of 1.04. Mildly decreased left ventricular systolic function. Left ventricular ejection fraction is mildly reduced with a value of 45%. Mild global hypokinesis. Increased end diastolic and end systolic volumes. IMPRESSIONS 1. Myocardial perfusion imaging is normal. Attenuation artifact noted in inferior and apical diego. 2. Mildly decreased left ventricular systolic function. Left ventricular ejection fraction is mildly reduced with a value of 45%. 4. Mild global hypokinesis. 5. No coronary ischemia based on this study. 6. 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 Chanel Irvin MD (Electronically Signed) Final Date: 23 January 2021 13:17 S
[2021-01-17] MEDS: regadenoson 0.4 Mg/5 ml Syringe IVP (11:08)
[2021-01-17 11:18] VITALS: BP 168/83; PULSE 84
== END 2021-01-17 08:56 | disposition home or self-care (01) ==
LOC: RAD 08:59 → CDL 09:41
PROVIDERS: PCP Nurse Practitioner; Visit Provider Family Medicine
DX: R07.89 Other chest pain (principal)
CPT/HCPCS: 78452; 93017; A9500; J2785

== ENCOUNTER → 2021-01-30 10:03 | Outpatient (BNVA) | payer MEDICARE, SELFPAY | PROVIDERS: PCP Nurse Practitioner; Visit Provider Internal Medicine Cardiovascular Disease | DX: E78.5 Hyperlipidemia, unspecified (principal); I10 Essential (primary) hypertension; R06.02 Shortness of breath; Z86.73 Personal history of transient ischemic attack (TIA), and cerebral infarction without residual deficits; I45.2 Bifascicular block; I35.1 Nonrheumatic aortic (valve) insufficiency | CPT/HCPCS: 80048; 80061; 83735; 83880; 85025 ==

== ENCOUNTER → 2021-03-13 10:21 | Outpatient (BNVA) | payer MEDICARE, SELFPAY | PROVIDERS: PCP Nurse Practitioner; Visit Provider Internal Medicine Cardiovascular Disease | DX: R06.02 Shortness of breath (principal); I50.9 Heart failure, unspecified; I10 Essential (primary) hypertension; E78.5 Hyperlipidemia, unspecified; I49.3 Ventricular premature depolarization; I45.2 Bifascicular block; I35.1 Nonrheumatic aortic (valve) insufficiency; Z86.73 Personal history of transient ischemic attack (TIA), and cerebral infarction without residual deficits | CPT/HCPCS: 80048; 83735; 83880 ==

== ENCOUNTER → 2021-05-14 11:55 | Outpatient (BNVA) | payer MEDICARE, SELFPAY | PROVIDERS: PCP Nurse Practitioner; Visit Provider Internal Medicine Cardiovascular Disease | DX: R06.02 Shortness of breath (principal); I10 Essential (primary) hypertension; I50.9 Heart failure, unspecified; I50.22 Chronic systolic (congestive) heart failure; I35.1 Nonrheumatic aortic (valve) insufficiency; E78.5 Hyperlipidemia, unspecified; I49.3 Ventricular premature depolarization; I45.2 Bifascicular block; Z86.73 Personal history of transient ischemic attack (TIA), and cerebral infarction without residual deficits | CPT/HCPCS: 80048; 83735; 83880 ==

== ENCOUNTER 2022-01-27 21:33 | Emergency (ER) | payer MEDICARE, SELFPAY ==
--- NOTE | 2022-01-27 21:44 | ED_ITS ---
HPI - Neuro Symptoms/Deficit General: Chief Complaint: Neuro Symptoms/Deficit Stated Complaint: stroke like symptoms Time Seen by Provider: 01/27/22 21:43 History of Present Illness: Mr Chavira is an 86-year-old gentleman with significant past medical history of stroke with residual left lower extremity weakness and left hand contracture, CHF, hypertension, hyperlipidemia presents to the emergency department due to strokelike symptoms. He reports sitting watching TV just before 8 PM today and had sudden onset of blurry vision. Additionally he noted dysarthric speech and difficulty swallowing associated with right upper and lower extremity numbness. At maximum symptoms were moderate in intensity and have slowly improved. In triage patient still felt like his speech was not quite back to normal however he now feels totally back to normal. 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 No other specific changes in health, exacerbating, or alleviating factors identified. Onset (ago): hour(s) Last Observed Normal: 20:00 Timing confirmed by: spouse Location: speech, dysarthria, right arm and right leg History of same: Yes Severity: moderate Quality: numb Context: sudden onset On Anticoagulants: No Review of Systems General: Reports: 10 or more systems reviewed and unremarkable except in HPI and below PFSH ED PFSH: Medical History CHF (congestive heart failure), NYHA class III Chronic neck pain Dyslipidemia History of nonmelanoma skin cancer History of stroke Left side weakness Hypertension Spinal osteoarthritis Surgical History History of carpal tunnel surgery right year 1999 History of hernia repair 1983,1987,1997 History of hip replacement, total bilateral History of neck surgery 2011 History of prostatectomy History of shoulder surgery right History of transurethral resection of prostate Family History Other Cancer Hypertension Social History Second hand smoke exposure: No Smoking risk assessment/counseling performed?: No Alcohol intake: never Desire information about alcohol rehabilitation?: No Counseling given: No Desire information about substance/drug rehabilitation?: No Counseling given: No Caregiver/support person: No Lives independently: Yes Household members: spouse Housing: House Marital status: service: No Current occupational status: employed Current occupation: [employer] Pets and animals: Yes History of recent travel: No Current gender identity: Male Physical Exam Const: COMMON NORMALS: patient oriented x3 and alert GENERAL APPEARANCE: cooperative and well developed HENMT: COMMON NORMALS: normocephalic and atraumatic HEAD & SCALP: normocephalic and atraumatic THROAT: posterior oropharynx normal Eye: COMMON NORMALS: Equal, round and reactive pupils present, EOMs intact bilaterally, conjunctivae normal and normal visual ervin by confrontation CONJUNCTIVA: Yes conjunctivae normal SCLERA: sclerae normal PUPIL: Yes Equal, round and reactive pupils present Neck/C-Spine: COMMON NORMALS: supple GENERAL: Yes trachea midline Resp: COMMON NORMALS: normal respiratory effort EFFORT & INSPECTION: Yes able to speak in complete sentences Cardio: COMMON NORMALS: regular rate and regular rhythm RATE: regular rate RHYTHM: regular rhythm GI: COMMON NORMALS: Soft to palpation PALPATION: Yes Soft to palpation and No Tenderness to palpation present (GI) PERCUSSION: normal to percussion Extremity: GENERAL: Yes normal exam except as noted and No edema Neuro: COMMON NORMALS: patient oriented x3, CN's II-XII intact bilaterally, moves all extremities, no focal motor deficits (Baseline left-sided mild deficits) and no sensory deficits noted SENSORIUM/ORIENTATION: Yes alert and No Orientation impaired Psych: COMMON NORMALS: mental status grossly normal and Normal thought process present THOUGHT PROCESS: Normal thought process present Course ED course: - Patient was seen and evaluated by me at bedside - Patient placed on cardiac monitors, IV access obtained - Initial evaluation notable for exam as above. NIHSS perhaps 1 if accounting for dysarthric speech noted in triage and discounting reportedly chronic left weakness - Discussed with neurology on-call Dr. Sanchez - Labs and xrays personally interpreted by me. EKG showing sinus rhythm with right bundle branch block, no STEMI. - Labs notable for mild leukopenia of uncertain etiology, hemoglobin normal with macrocytosis noted. Metabolic panel with mildly increased BUN, renal function normal with no electrolyte derangement. Delta troponin is negative. - Imaging notable for mild cardiomegaly and emphysema noted on chest x-ray. CT head without intracranial mass or hemorrhage. CTA neck and head with mild to moderate stenosis of right P1 segment. - Upon serial reexamination after treatment the patient was improved without recurrence of neurologic symptoms. Patient feels back to baseline. - Based on patient history, evaluation, and testing as interpreted the most likely cause of the patient's condition is TIA - The results of ED evaluation were discussed with the patient including possible disposition options. I discussed increased risk of stroke after TIA however patient still prefers to be discharged with outpatient follow-up. I discussed prescriptions and/or symptomatic cares (if applicable) including appropriate and responsible use, followup plan, and return precautions. The patient verbalized understanding and felt safe for discharge. - Patient discharged in satisfactory condition. Note: Click bubbles or prepopulated ervin in note writing are used for assistance with data collection and billing and are inherently more limited than narrative and other text portions of this note. Please use narrative for additional clinical history and defer to narrative/free test for any case of contradictory information. If information appears in only free text or click bubble it darryl uld be considered present or absent as reported. Please contact note justowriter operator for clarifications of clinical information or contradictory information. MDM is a brief summary, contradictory or erroneous seeming information should be clarified and full note should be reviewed. Vital Signs: Vital signs: Vital Signs Pulse Rate 67 01/28/22 00:37 Respiratory Rate 16 01/28/22 00:37 Blood Pressure 137/83 01/28/22 00:37 Pulse Oximetry 97 01/28/22 00:37 MDM - Neuro Symptoms/Deficit Medical Decision Making 86-year-old gentleman with history of stroke presenting with TIA episode. Symptoms resolved upon arrival. No clear etiology identified on labs or imaging. Patient prefers discharge and discharged with strict return precautions with initiation of aspirin in addition to his statin that he takes already. Medical Records I reviewed the patient's medical records. Lab Data I reviewed the patient's lab results. : 01/27/22 21:51 01/27/22 22:25 Radiology Impressions Chest X-Ray 01/27/22 21:51 IMPRESSION: 1. Mild cardiomegaly. 2. Mild emphysema. 3. No acute disease. Head CT 01/27/22 21:51 IMPRESSION: 1. No acute infarct or hemorrhage. 2. Mild parenchymal atrophy and chronic small vessel disease. ASSESSMENT: ASPECTS (Betzy Stroke Program Early CT Score) is 10. Head/Neck CTA 01/27/22 22:05 IMPRESSION: 1. No acute infarct or hemorrhage. 2. Mild-moderate stenosis of the right P1 segment. 3. No large vessel occlusion. IMPRESSION: No vascular stenosis, occlusion or dissection. REFERENCES: NASCET CRITERIA. The degree of internal carotid artery stenosis is based on NASCET criteria. Normal is no stenosis. Mild is less than 50% stenosis. Moderate is 50-69% stenosis. Severe is 70% to 99% stenosis. Total occlusion is no detectable patent lumen. Laboratory Results WBC 3.9 10^3/uL (4.0-10.0) L 01/27/22 21:51 RBC 4.19 10^6/uL (4.1-5.3) 01/27/22 21:51 Hgb 14.1 g/dL (11.7-16.6) 01/27/22 21:51 Hct 41.2 % (42.0-52.0) L 01/27/22 21:51 MCV 98.3 fl (80-94) H 01/27/22 21:51 MCH 33.7 pg (28.0-34.0) 01/27/22 21:51 MCHC 34.2 g/dL (30.0-36.0) 01/27/22 21:51 RDW 14.2 % (12.1-15.1) 01/27/22 21:51 Plt Count 139 10^3/cmm (130-400) 01/27/22 21:51 MPV 10.0 fL (7.4-10.4) 01/27/22 21:51 Neut % (Auto) 40.3 % 01/27/22 21:51 Lymph % (Auto) 39.0 % 01/27/22 21:51 Smith % (Auto) 18.6 % 01/27/22 21:51 Eos % (Auto) 1.3 % 01/27/22 21:51 Baso % (Auto) 0.5 % 01/27/22 21:51 Neut # (Auto) 1.58 10^3/uL (1.8-7.7) L 01/27/22 21:51 Lymph # (Auto) 1.5 10^3/uL (0.8-4.8) 01/27/22 21:51 Smith # (Auto) 0.7 10^3/uL (0.2-0.9) 01/27/22 21:51 Eos # (Auto) 0.1 10^3/uL (0.0-0.8) 01/27/22 21:51 Baso # (Auto) 0.0 10^3/uL (0.0-0.1) 01/27/22 21:51 Nucleated RBC % (auto) 0 % 01/27/22 21:51 Nucleated RBCs # 0.0 /100WBC 01/27/22 21:51 PT 13.70 SECONDS (12.1-14.9) 01/27/22 21:51 INR 1.02 (0.8-1.2) 01/27/22 21:51 APTT 32.2 SECONDS (23.9-36.7) 01/27/22 21:51 Sodium 138 mmol/L (136-145) 01/27/22 22:25 Potassium 4.9 mmol/L (3.5-5.1) 01/27/22 22:25 Chloride 103 mmol/L (98-107) 01/27/22 22:25 Carbon Dioxide 27 mmol/L (22-29) 01/27/22 22:25 Anion Gap 12.9 (5-19) 01/27/22 22:25 BUN 42 mg/dL (8-23) H 01/27/22 22:25 Creatinine 0.9 mg/dL (0.7-1.2) 01/27/22 22:25 GFR Calculation Not Reportable 01/27/22 22:25 Glucose 99 mg/dL (65-115) 01/27/22 22:25 POC Glucose 91 mg/dL (70-110) 01/27/22 21:47 Calculated Osmolality 297 mOsm/kg (285-295) H 01/27/22 22:25 Calcium 8.5 mg/dL (8.5-10.5) 01/27/22 22:25 Total Bilirubin 1.0 mg/dL (0.15-1.2) 01/27/22 22:25 AST 29 U/L (0-40) 01/27/22 22:25 ALT 20 U/L (0-41) 01/27/22 22:25 Alkaline Phosphatase 43 IU/L (40-130) 01/27/22 22:25 Troponin T Baseline 38 ng/L (0-15) H 01/27/22 22:25 Troponin T 120 Minute 37.61 ng/L (0-15) H 01/27/22 23:31 Delta Troponin T -0.39 ABS# (0-10) L 01/27/22 23:31 Total Protein 5.5 g/dL (6.6-8.7) L 01/27/22 22:25 Albumin 3.7 g/dL (3.5-5.2) 01/27/22 22:25 Globulin 1.8 g/dL (1.3-4.6) 01/27/22 22:25 Discharge Plan Discharge Patient Disposition: Home Clinical Impression: TIA (transient ischemic attack) Condition: Stable Prescriptions: New aspirin 325 mg tablet 325 mg PO DAILY Qty: 60 2RF No Action (DME) wheelchair See Rx Instructions .Route .MEDSUPPLY Qty: 1 0RF Rx Instructions: As directed NuFlexol PO DAILY 0RF ascorbic acid (vitamin C) 1,000 mg tablet 500 mg PO DAILY 0RF Vitamin D 3 PO 0RF ArthriVarx PO 0RF Cardio Platiunm PO 0RF coenzyme Q10 [Co Q-10] 100 mg capsule 100 mg PO DAILY@1800 0RF acetaminophen [Tylenol Arthritis Pain] 650 mg tablet extended release 650 mg PO Q12H PRN (Reason: pain) 0RF niacinamide 500 mg tablet 500 mg PO DAILY@1800 0RF vitamin B complex [B Complex-Vitamin B12] Tablet 1 tab PO DAILY 0RF magnesium oxide 400 mg magnesium capsule 400 mg PO DAILY 0RF potassium gluconate 595 mg (99 mg) tablet 595 mg PO .QOD 0RF furosemide 40 mg tablet 20 mg PO DAILY Qty: 90 2RF Rx Instructions: Can take whole tablet (40mg) if he has an increased shortness of breath simvastatin 10 mg tablet 10 mg PO .at bedtime Qty: 90 2RF lisinopril 20 mg tablet See Rx Instructions .ROUTE .COMPLEX Qty: 90 3RF Dose Instruction: TAKE 1 TABLET EVERY DAY AT 6AM Rx Instructions: TAKE 1 TABLET EVERY DAY AT 6AM spironolactone 25 mg tablet 12.5 mg PO DAILY Qty: 45 2RF multivitamin [Multiple Vitamins] Tablet 1 tab PO BID@,18 0RF Probiotic 3 billion cell Capsule 3,000 mmu cells PO DAILY 0RF Discharge Orders: Discharge ED (Routine); Ordered 01/28/22 Ordered By: Eliezer Jordan Referrals: Madelin Bellamy, [employer] [Primary Care Provider] - Discharge Diet: Usual diet Discharge Activity: Resume usual activity Patient Instructions: Transient Ischemic Attack (ED) Activity Restrictions/Additional Instructions: Thank you for visiting the emergency department. You were seen and evaluated for strokelike symptoms that improved. Based on description I believe that you had a TIA. As discussed this does increase the risk of stroke in the future. Please take a 325 mg tablet of aspirin per day and continue your statin as well as other medications. Please follow-up with your primary care provider regarding further outpatient s troke risk factor modification. Please return to the emergency department with any new neurologic symptoms or anything else that you are concerned about a feel needs emergency department evaluation. Coding Level of Care Code ED Childcare Provider for Kamilla Fwmike Exam Comprehensive
[2022-01-27 21:47] VITALS: BP 146/84; PULSE 65; RESP 16; O2SAT 95
[2022-01-27 21:50] LABS: Glucose Point of Care 91 mg/dL (70-110)
--- NOTE | 2022-01-27 21:51 | CTR_ITS ---
PROCEDURE INFORMATION: Exam: CT Head Without Contrast Exam date and time: 01/27/2022 10:09 PM Age: 86 years old Clinical indication: Stroke-like symptoms; Speech disturbance and visual disturbance; RT upper extremity and RT lower extremity weakness; Additional info: Patient states sudden onset of RT side weakness with mild slurred speech and blurry vision. History of stroke in 2002. TECHNIQUE: Imaging protocol: Computed tomography of the head without contrast. Radiation optimization: All CT scans at this facility use at least one of these dose optimization techniques: automated exposure control; mA and/or kV adjustment per patient size (includes targeted exams where dose is matched to clinical indication); or iterative reconstruction. Other technique: STROKE PROTOCOL was implemented. COMPARISON: MR cervical spin wo con* [id number] 07/02/2020 11:15 AM RADIATION DOSE METRICS: Total DLP (mGy-cm): 774.02 FINDINGS: Brain: There is right centrum semiovale encephalomalacia. There is mild parenchymal atrophy and chronic small vessel disease. Cerebral ventricles: No ventriculomegaly. Paranasal sinuses: Paranasal sinuses are clear. No air-fluid level. Mastoid air cells: Visualized mastoid air cells are clear. Bones/joints: Unremarkable. No acute fracture. Soft tissues: Unremarkable. Other findings: No acute infarct or hemorrhage. CT/CT head wo con* [id number] IMPRESSION: 1. No acute infarct or hemorrhage. 2. Mild parenchymal atrophy and chronic small vessel disease. ASSESSMENT: ASPECTS (Betzy Stroke Program Early CT Score) is 10.
--- NOTE | 2022-01-27 21:51 | XRR_ITS ---
PROCEDURE INFORMATION: Exam: XR Chest Exam date and time: 01/27/2022 9:56 PM Age: 86 years old Clinical indication: Other: Numbness/weakness on right side; Patient HX: HX of stroke 2002; Additional info: Stroke like symptoms TECHNIQUE: Imaging protocol: XR of the chest. Views: 1 view. COMPARISON: CR XR chest 1V portable [id number] 12/13/2020 10:48 AM FINDINGS: Lungs: Mild emphysema. Pleural spaces: Unremarkable. No pleural effusion. No pneumothorax. Heart/Mediastinum: There is mild cardiomegaly. Bones/joints: Right total shoulder arthroplasty is in place. XR/XR chest 1V portable [id number] IMPRESSION: 1. Mild cardiomegaly. 2. Mild emphysema. 3. No acute disease.
--- NOTE | 2022-01-27 21:51 | ECG_ITS ---
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 Measurements Intervals [place] Rate: 66 P: 75 RI: 174 QRS: -84 QRSD: 116 T: 70 QT: 456 QTc: 478 Interpretive Statements SINUS RHYTHM WITH OCCASIONAL VENTRICULAR PREMATURE COMPLEXES POSSIBLE LEFT ATRIAL ENLARGEMENT [-0.1mV P-WAVE IN V1/V2] RIGHT BUNDLE BRANCH BLOCK [120+ ms QRS DURATION, UPRIGHT V1, 40+ ms S IN I/aVL/V4/V5/V6] LEFT ANTERIOR FASCICULAR BLOCK [QRS AXIS <= -45, QR IN I, RS IN II] ANTEROSEPTAL MYOCARDIAL INFARCTION , OF INDETERMINATE AGE [40+ ms Q WAVE IN V1-V4] Compared to ECG 12/13/2020 12:47:47 No significant changes Electronically Signed On 01-28-2022 22:20:24 CDT by Chanel Irvin M.D. [id number] f
[2022-01-27 22:03] LABS: Basophils % 0.5 %; Eosinophils # 0.1 10^3/uL (0.0-0.8); Eosinophils % 1.3 %; Hematocrit 41.2 % (42.0-52.0); Hemoglobin 14.1 g/dL (11.7-16.6); Lymphocytes # 1.5 10^3/uL (0.8-4.8); Mean Corpuscular HGB Conc 34.2 g/dL (30.0-36.0); Mean Corpuscular Hemoglobin 33.7 pg (28.0-34.0); Mean Corpuscular Volume 98.3 fl (80-94); Monocytes # 0.7 10^3/uL (0.2-0.9); Monocytes % 18.6 %; Neutrophils # 1.58 10^3/uL (1.8-7.7); Neutrophils % 40.3 %; Nucleated Red Blood Cells % 0 %; Platelet Count 139 10^3/cmm (130-400); Red Blood Count 4.19 10^6/uL (4.1-5.3); Red Cell Distribution Width 14.2 % (12.1-15.1); White Blood Count 3.9 10^3/uL (4.0-10.0)
--- NOTE | 2022-01-27 22:05 | CTR_ITS ---
PROCEDURE INFORMATION: Exam: CTA Head With Contrast, Arteriography Exam date and time: 01/27/2022 10:15 PM Age: 86 years old Clinical indication: Stroke-like symptoms; Speech disturbance and visual disturbance; RT upper extremity and RT lower extremity weakness; Additional info: Stroke like symptoms TECHNIQUE: Imaging protocol: Computed tomographic angiography of the head with contrast. Exam focused on the arteries. 3D rendering (Not supervised by radiologist): MIP and/or 3D reconstructed images were created by the technologist. Radiation optimization: All CT scans at this facility use at least one of these dose optimization techniques: automated exposure control; mA and/or kV adjustment per patient size (includes targeted exams where dose is matched to clinical indication); or iterative reconstruction. Contrast material: OMNI 350; Contrast volume: 69 ml; Contrast route: INTRAVENOUS (IV); COMPARISON: CT head wo con* [id number] 01/27/2022 10:09 PM RADIATION DOSE METRICS: Total DLP (mGy-cm): 1855.06 FINDINGS: ANTERIOR CIRCULATION: Right internal carotid artery: Right ICA calcifications without significant stenosis. Right middle cerebral artery: Unremarkable. No occlusion or significant stenosis. No aneurysm. Right anterior cerebral artery: Unremarkable. No occlusion or significant stenosis. No aneurysm. Left internal carotid artery: Left ICA calcifications without significant stenosis. Left middle cerebral artery: Unremarkable. No occlusion or significant stenosis. No aneurysm. Left anterior cerebral artery: Unremarkable. No occlusion or significant stenosis. No aneurysm. POSTERIOR CIRCULATION: Right vertebral artery: Unremarkable. No occlusion or significant stenosis. No aneurysm. Left vertebral artery: Unremarkable. No occlusion or significant stenosis. No aneurysm. Basilar artery: Unremarkable. No occlusion or significant stenosis. No aneurysm. Right posterior cerebral artery: Mild-moderate stenosis of the right P1 segment. Left posterior cerebral artery: Unremarkable. No occlusion or significant stenosis. No aneurysm. Brain: No definite mass, mass effect, or midline shift. Cerebral ventricles: No ventriculomegaly. Bones/joints: Unremarkable. No acute fracture. Soft tissues: Unremarkable. Other findings: No acute infarct or hemorrhage. PROCEDURE INFORMATION: Exam: CTA Neck With Contrast Exam date and time: 01/27/2022 10:15 PM Age: 86 years old Clinical indication: Stroke-like symptoms; Speech disturbance and visual disturbance; RT upper extremity and RT lower extremity weakness; Additional info: Stroke like symptoms TECHNIQUE: Imaging protocol: Computed tomographic angiography of the neck with contrast. 3D rendering (Not supervised by radiologist): MIP and/or 3D reconstructed images were created by the technologist. Radiation optimization: All CT scans at this facility use at least one of these dose optimization techniques: automated exposure control; mA and/or kV adjustment per patient size (includes targeted exams where dose is matched to clinical indication); or iterative reconstruction. Contrast material: OMNI 350; Contrast volume: 69 ml; Contrast route: INTRAVENOUS (IV); COMPARISON: CT neck wo con [id number] 07/05/2018 3:03 PM RADIATION DOSE METRICS: Total DLP (mGy-cm): 1855.06 FINDINGS: Right common carotid artery: No stenosis. No dissection or occlusion. Right internal carotid artery: No stenosis of the extracranial segment. No dissection or occlusion. Right external carotid artery: No occlusion or stenosis of the origin. Left common carotid artery: No stenosis. No dissection or occlusion. Left internal carotid artery: No stenosis of the extracranial segment. No dissection or occlusion. Left external carotid artery: No occlusion or stenosis of the origin. Right vertebral artery: No stenosis. No dissection or occlusion. Left vertebral artery: No stenosis. No dissection or occlusion. Other arteries: There is mild atherosclerotic disease. Lymph nodes: Calcified lymph nodes are present, secondary to prior granulomatous disease. Soft tissues: Normal. No significant soft tissue swelling. Bones/joints: Is anterior cervical fixation hardware C4-C6. CT/CT angio headneck* [id number] IMPRESSION: 1. No acute infarct or hemorrhage. 2. Mild-moderate stenosis of the right P1 segment. 3. No large vessel occlusion. IMPRESSION: No vascular stenosis, occlusion or dissection. REFERENCES: NASCET CRITERIA. The degree of internal carotid artery stenosis is based on NASCET criteria. Normal is no stenosis. Mild is less than 50% stenosis. Moderate is 50-69% stenosis. Severe is 70% to 99% stenosis. Total occlusion is no detectable patent lumen.
[2022-01-27 22:15] VITALS: BP 146/84; PULSE 65; RESP 16; O2SAT 95
[2022-01-27 22:16] LABS: INR 1.02 (0.8-1.2)
[2022-01-27 22:17] LABS: Partial Thromboplastin Time 32.2 SECONDS (23.9-36.7)
[2022-01-27] MEDS: iohexol 350 mg/mL 100 mL Btl IV (22:17)
[2022-01-27 22:49] LABS: Troponin(5th) Baseline 38 ng/L (0-15)
[2022-01-27 22:50] LABS: Alanine Aminotransferase 20 U/L (0-41); Albumin Level 3.7 g/dL (3.5-5.2); Alkaline Phosphatase 43 IU/L (40-130); Blood Urea Nitrogen 42 mg/dL (8-23); Calcium 8.5 mg/dL (8.5-10.5); Carbon Dioxide 27 mmol/L (22-29); Chloride 103 mmol/L (98-107); Creatinine Clr Calc Pharmacy 56.9117; Globulin 1.8 g/dL (1.3-4.6); Glucose 99 mg/dL (65-115); Osmolality Calculated 297 mOsm/kg (285-295); Sodium 138 mmol/L (136-145); Total Protein 5.5 g/dL (6.6-8.7)
[2022-01-27 22:57] LABS: Anion Gap 12.9 (5-19); Aspartate Amino Transferase 29 U/L (0-40); Potassium 4.9 mmol/L (3.5-5.1)
--- NOTE | 2022-01-27 23:52 | ECG_ITS ---
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 Measurements Intervals [place] Rate: 61 P: 91 [place]: 165 QRS: -84 QRSD: 133 T: 89 QT: 496 QTc: 502 Interpretive Statements SINUS RHYTHM WITH OCCASIONAL VENTRICULAR PREMATURE COMPLEXES RIGHT BUNDLE BRANCH BLOCK [120+ ms QRS DURATION, UPRIGHT V1, 40+ ms S IN I/aVL/V4/V5/V6] LEFT ANTERIOR FASCICULAR BLOCK [QRS AXIS <= -45, QR IN I, RS IN II] POSSIBLE ANTERIOR MYOCARDIAL INFARCTION , OF INDETERMINATE AGE [30 ms Q WAVE IN V3/V4, OR R < 0.2 mV IN V4] Compared to ECG 12/13/2020 12:47:47 No significant changes Electronically Signed On 01-28-2022 22:25:53 CDT by Chanel Irvin M.D. [id number]
[2022-01-27 23:53] LABS: Troponin 5 2HR 37.61 ng/L (0-15)
[2022-01-28] LABS: Troponin 5 2HR Delta -0.39 ABS# (0-10)
[2022-01-28 00:37] VITALS: BP 137/83; PULSE 67; RESP 16; O2SAT 97
== END 2022-01-28 00:41 | disposition home or self-care (01) ==
PROVIDERS: Emergency Provider Emergency Medicine; PCP Nurse Practitioner
DX: G45.9 Transient cerebral ischemic attack, unspecified (principal); I11.0 Hypertensive heart disease with heart failure; I50.9 Heart failure, unspecified; I69.354 Hemiplegia and hemiparesis following cerebral infarction affecting left non-dominant side; E78.5 Hyperlipidemia, unspecified
CPT/HCPCS: 36416; 70450; 70496; 70498; 71045; 80053; 82962; 84484; 85025; 85610; 85730; 93005; 99285; Q9967

== ENCOUNTER 2022-01-28 10:38 | Emergency (ER) | payer MEDICARE, SELFPAY ==
[2022-01-28 10:52] VITALS: BP 138/67; PULSE 68; RESP 14; TEMP 36.9; O2SAT 97; BMI 19.3
--- NOTE | 2022-01-28 12:12 | CT_ITS ---
WS: [id number] CT HEAD NONCONTRAST HISTORY: Symptoms of Acute Stroke TECHNIQUE: Contiguous axial imaging performed through the brain in 2.5 mm imaging. Bone and soft tiss ue windows. Sagittal and coronal reformats reviewed. All CT scans at [facility] use at least one of these dose optimization techniques: automated exposure control; mA and/or kV adjustment per pa tient size (includes targeted exams where dose is matched to clinical indication); or iterative recon struction. DLP: 905.28 mGy.cm COMPARISON: 01/27/2022 No acute intracranial hemorrhage, midline shift or mass effect. Moderate atrophy and severe small vessel ischemic type changes. RIGHT mcneil radiata prior infarct. T iny infarct within the RIGHT thalamus. Ventricles: Ventricles are moderately enlarged. Extra-axial spaces are prominent. No inferior displacement of the cerebellar tonsils. Paranasal sinuses: As visualized are clear. Mastoid air cells: Well pneumatized. Calvarium and scalp: Skull is intact with no soft tissue edema or swelling. CT/CT head wo con* [id number] IMPRESSION: 1. No acute intracranial hemorrhage or edema. 2. Moderate to severe small vessel ischemic changes and atrophy. 3. Remote RIGHT mcneil radiata infarct. No acute interval change.
--- NOTE | 2022-01-28 12:12 | ECG_ITS ---
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 Measurements Intervals [place] Rate: P: [place]: QRS: QRSD: T: QT: QTc: Interpretive Statements Sinus rhythm with occasional PVCs Right bundle branch block Possible old inferior myocardial infarction WARNING: DATA QUALITY MAY AFFECT INTERPRETATION Compared to ECG 01/27/2022 23:51:57 Sinus rhythm no longer present Ventricular premature complex(es) no longer present Right bundle-branch block no longer present Left anterior fascicular block no longer present Myocardial infarct finding no longer present Electronically Signed On 01-29-2022 19:10:08 CDT by Chanel Irvin M.D. [id number]
--- NOTE | 2022-01-28 13:05 | ED_ITS ---
HPI - Neuro Symptoms/Deficit General: Chief Complaint: Neuro Symptoms/Deficit Stated Complaint: Numbs in right side, weakness, blurry vision Time Seen by Provider: 01/28/22 12:12 Source: patient Mode of arrival: ambulatory Limitations: no limitations History of Present Illness: 86-year-old male presents emergency room with complaints of right arm weakness. There are some. Time evidently had some nu mbness or loss sensation in the right lateral chest wall as well. He previously had a CVA with some residual left-sided weakness. He was seen overnight had a normal head CT and a CTA of the head and neck that did not show any significant stenosis or embolism. All the symptoms had resolved he previously has had some neck issues as well and he describes having had a peripheral ulnar neuropathy br ought about by posture leaning on the ulnar notch that is still intermittently present now he is having median nerve symptoms that he describes as radiating down across his shoulder down his entire arm into his hand. He has really noticed anything exacerbates or relieves them. Earlier today he reports having had some vision difficulties but he is not having any of that now. No difficulty swallowing or speaking at this moment. He states the weakness on his left side is pretty much on par with what he had in the past. No other symptoms no chest pain. Labs and imaging from most recent ER visit were reviewed. Onset (ago): hour(s) Location: right face and right arm History of same: Yes Severity: mild Quality: weak and numb Relieving factors: none Exacerbating factors: none Associated symptoms: Deny chest pain, cough, diaphoresis, fevers/chills, headache(s), anorexia, malaise, nausea, seizures, short of breath, syncope, tingling, vertigo, vomiting or weakness Treatments Prior to Arrival: none Review of Systems Const: Denies: fever(s), chills, fatigue, malaise or diaphoresis ENMT: Denies: throat pain, ear or mastoid pain, nasal discharge or nasal congestion Card: Denies: chest pain or syncope Resp: Denies: dyspnea, productive cough or non-productive cough GI: Denies: abdominal pain, nausea or vomiting : Denies: flank pain, difficulty urinating, dysuria, urinary frequency or urinary urgency Musc: Reports: neck pain (Chronic) Skin/Breast: Denies: rash or pruritus Neuro: Denies: headache(s) or vertigo PFSH ED PFSH: Medical History CHF (congestive heart failure), NYHA class III Chronic neck pain Dyslipidemia History of nonmelanoma skin cancer History of stroke Left side weakness Hypertension Spinal osteoarthritis Surgical History History of carpal tunnel surgery right year 1999 History of hernia repair 1983,1987,1997 History of hip replacement, total bilateral History of neck surgery 2012 History of prostatectomy History of shoulder surgery right History of transurethral resection of prostate Family History Other Cancer Hypertension Social History Second hand smoke exposure: No Smoking risk assessment/counseling performed?: No Alcohol intake: never Desire information about alcohol rehabilitation?: No Counseling given: No Desire information about substance/drug rehabilitation?: No Counseling given: No Caregiver/support person: No Lives independently: Yes Household members: spouse Housing: House Marital status: service: No Current occupational status: employed Current occupation: [employer] Pets and animals: Yes History of recent travel: No Current gender identity: Male NIH stroke score NIHSS: Level Of Consciousness - 1a: 0 Level Of Consciousness Questions - 1b: Both Correct Level Of Consciousness Commands - 1c: Both Correct Best Gaze - 2: Normal Visual Mcnamara - 3: No Visual Loss Facial Palsy - 4: Normal Motor Arm Right - 5: No Drift Motor Arm Left - 5: No Drift Motor Leg Right - 6: No Drift Motor Leg Left - 6: No Drift Limb Ataxia - 7: Absent Sensory - 8: Normal Best Language - 9: No Aphasia Dysarthia - 10: Normal Extinction And Inattention - 11: 0 Score: Total Score: 0 Physical Exam Const: COMMON NORMALS: no acute distress GENERAL APPEARANCE: cooperative and comfortable ORIENTATION/CONSCIOUSNESS: Yes awake, Yes oriented to person, Yes oriented to place and Yes oriented to time HENMT: COMMON NORMALS: normocephalic, atraumatic, hearing grossly normal bilaterally, external ears normal, EAC's normal, TM's normal bilaterally, Normal nasal mucous membranes and turbinates present, moist oral mucous membranes and oropharynx normal HEAD & SCALP: normocephalic and atraumatic NOSE: Normal nasal mucous membranes and turbinates present EXTERNAL EAR: Yes external ears normal EXTERNAL AUDITORY CANAL: EAC's normal TYMPANIC MEMBRANE: TM's normal bilaterally Eye: COMMON NORMALS: Equal, round and reactive pupils present, EOMs intact bilaterally, conjunctivae normal and no scleral icterus CONJUNCTIVA: Yes conjunctivae normal PUPIL: Yes Equal, round and reactive pupils present Neck/C-Spine: COMMON NORMALS: full ROM, no lymphadenopathy, supple and no JVD Resp: COMMON NORMALS: normal respiratory effort, No retractions, No use of accessory muscles and clear to auscultation bilaterally AUSCULTATION: clear to auscultation bilaterally Cardio: COMMON NORMALS: no JVD, regular rate, regular rhythm and No murmurs present (Cardio) RATE: regular rate RHYTHM: regular rhythm GI: COMMON NORMALS: Soft to palpation and No hepatosplenomegaly present AUSCULTATION: Yes normoactive bowel sounds PALPATION: Yes Soft to palpation, No Tenderness to palpation present (GI), No Guarding due to palpation present (GI) and Yes No hepatosplenomegaly present Extremity: COMMON NORMALS: normal to inspection, capillary refill normal, no clubbing, cyanosis or edema, no calf tenderness and no pedal edema OTHER: Contracture of the left arm into the elbow residual from previous stroke but there is no weakness off his baseline according to the patient and the family Neuro: SENSORIUM/ORIENTATION: Yes oriented to person, Yes oriented to place and Yes oriented to time Skin: COMMON NORMALS: no rashes or lesions noted GENERAL SKIN EXAM: no rashes or lesions noted Course Vital Signs: Vital signs: Vital Signs Temperature 98.4 F 01/28/22 10:52 Pulse Rate 68 01/28/22 10:52 Respiratory Rate 14 01/28/22 10:52 Blood Pressure 138/67 01/28/22 10:52 Pulse Oximetry 97 01/28/22 10:52 [facility] - Neuro Symptoms/Deficit Medical Decision Making Dizziness score really only shows the previous deficits from his old CVA. Seems more of his symptoms are radicular in nature associated with neck in that right arm. Repeated his head CT reviewed the test done earlier today discussed Dr. Sanchez. We both agreed at this point would not start Plavix or increase his statin he did not tolerate other increase in statin in the past. We do recommend that he get a nerve conduction study and follow-up with neurology. In addition to this in talking to him and his family yesterday he had increased activity level outside in the heat and it seems to exacerbate and make a lot of his symptoms worse.These things have largely resolved now so I think some of his exacerbation of his underlying symptoms due to fatigue. Medical Records I reviewed the patient's medical records. Lab Data I reviewed the patient's lab results. Radiology Impressions Head CT 01/28/22 12:12 IMPRESSION: 1. No acute intracranial hemorrhage or edema. 2. Moderate to severe small vessel ischemic changes and atrophy. 3. Remote RIGHT mcneil radiata infarct. No acute interval change. Discharge Plan Discharge Patient Disposition: Home Clinical Impression: TIA (transient ischemic attack), Spinal osteoarthritis, Chronic neck pain, History of stroke, Radicular pain in left arm Condition: Stable Prescriptions: No Action coenzyme Q10 [Co Q-10] 100 mg capsule 100 mg PO DAILY@1800 0RF acetaminophen [Tylenol Arthritis Pain] 650 mg tablet extended release 650 mg PO Q12H PRN (Reason: pain) 0RF niacinamide 500 mg tablet 500 mg PO DAILY@1800 0RF potassium gluconate 595 mg (99 mg) tablet 297.5 mg PO DAILY 0RF multivitamin [Multiple Vitamins] Tablet 1 tab PO BID@,18 0RF Probiotic 3 billion cell Capsule 3,000 mmu cells PO DAILY 0RF aspirin 325 mg tablet 325 mg PO DAILY Qty: 60 2RF Cardio [place] 1 tab PO BID 0RF furosemide 40 mg tablet 40 mg PO EVERY OTHER DAY 0RF lisinopril 20 mg tablet 20 mg PO DAILY 0RF simvastatin 10 mg tablet 10 mg PO BEDTIME 0RF spironolactone 25 mg tablet 12.5 mg PO EVERY OTHER DAY 0RF Discharge Orders: Discharge ED (Routine); Ordered 01/28/22 Ordered By: Sean Jameson Referrals: Madelin Bellamy, [facility] [Primary Care Provider] - Discharge Diet: Usual diet Discharge Activity: Limit activity as instructed Activity Restrictions/Additional Instructions: marketing services manager will call to make arrangements for you to have nerve conduction of the right upper extremity and follow-up with neurology Coding Level of Care Code ED Photographic Hand Developer for Kamilla Fwd Exam Comprehensive
--- NOTE | 2022-01-29 13:41 | DCPLANNER ---
Addendum entered by Augusta Waters 03/17/22 13:25: crisis manager received the following message from neurology regarding follow up appointment: I called patient to schedule. He said he had testing done already by Dr. Sanchez and his right arm was already damaged beyond repair . He doesn't feel like doing the testing again would give him any more information. He said the only fix was surgery and at his age, he doesn't want surgery unless its critical. Original Note: crisis manager had message to schedule a follow up appointment for patient with neurology. crisis manager sent patients information to the front office at neurology. Patients information will be printed and reviewed. Clinic will call patient with appointment information. crisis manager also had message to schedule a nerve conduction study. crisis manager faxed signed order to the neurology clinic, who will call patient with appointment information.
== END 2022-01-28 14:14 | disposition home or self-care (01) ==
PROVIDERS: Emergency Provider Family Medicine; PCP Nurse Practitioner
DX: G45.9 Transient cerebral ischemic attack, unspecified (principal); M47.22 Other spondylosis with radiculopathy, cervical region; G89.29 Other chronic pain; M79.601 Pain in right arm; I69.354 Hemiplegia and hemiparesis following cerebral infarction affecting left non-dominant side; I11.0 Hypertensive heart disease with heart failure; I50.9 Heart failure, unspecified
CPT/HCPCS: 70450; 93005; 99283

== ENCOUNTER 2022-02-07 19:51 | Observation (INO) | payer MEDICARE, SELFPAY ==
[2022-02-07 20:14] VITALS: BP 86/55; PULSE 86; RESP 17; TEMP 36.7; O2SAT 96; BMI 19.9
--- NOTE | 2022-02-07 20:19 | ECG_ITS ---
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 Measurements Intervals [place] Rate: 75 P: 67 MO: 147 QRS: -88 QRSD: 130 T: 76 QT: 438 QTc: 490 Interpretive Statements SINUS RHYTHM WITH OCCASIONAL VENTRICULAR PREMATURE COMPLEXES RIGHT BUNDLE BRANCH BLOCK [120+ ms QRS DURATION, UPRIGHT V1, 40+ ms S IN I/aVL/V4/V5/V6] LEFT ANTERIOR FASCICULAR BLOCK [QRS AXIS <= -45, QR IN I, RS IN II] PROBABLE SEPTAL MYOCARDIAL INFARCTION , PROBABLY OLD [35 ms Q WAVE IN V1/V2] Compared to ECG 01/28/2022 11:38:18 Left anterior fascicular block now present Myocardial infarct finding still present Electronically Signed On 02-08-2022 12:29:30 CDT by Christiano Waller M.D. [id number]
--- NOTE | 2022-02-07 20:19 | XRR_ITS ---
PROCEDURE INFORMATION: Exam: XR Chest Exam date and time: 02/07/2022 8:25 PM Age: 86 years old Clinical indication: Dyspnea TECHNIQUE: Imaging protocol: Radiologic exam of the chest. Views: 1 view. COMPARISON: CR (CHEST, ) 01/27/2022 9:56 PM FINDINGS: Tubes, catheters and devices: Prosthetic right humeral head. Lungs: COPD morphology of the chest. Pleural spaces: Unremarkable. No pleural effusion. No pneumothorax. Heart/Mediastinum: Unremarkable. No cardiomegaly. Vasculature: There is calcified plaque in the aortic knob. Bones/joints: There are degenerative changes in the visualized spine. XR/XR chest 1V portable [id number] IMPRESSION: 1. COPD morphology of the chest. 2. No acute findings.Non acute findings as described above.
[2022-02-07 20:21] VITALS: BP 95/74; PULSE 90; RESP 14; O2SAT 96
--- NOTE | 2022-02-07 20:29 | CTR_ITS ---
PROCEDURE INFORMATION: Exam: CTA Chest and Abdomen/Pelvis With Contrast Exam date and time: 02/07/2022 9:19 PM Age: 86 years old Clinical indication: Hypotension; Prior surgery; Surgery type: Hernia repair. Prostatectomy. Bilat hips; Patient HX: Hypotensive with rectal bleeding. ; Additional info: Rectal bleeding, hypotension TECHNIQUE: Imaging protocol: Computed tomographic angiography of the chest, abdomen and pelvis with contrast. 3D rendering (Not supervised by radiologist): MIP and/or 3D reconstructed images were created by the technologist. Radiation optimization: All CT scans at this facility use at least one of these dose optimization techniques: automated exposure control; mA and/or kV adjustment per patient size (includes targeted exams where dose is matched to clinical indication); or iterative reconstruction. Contrast material: OMNI 350; Contrast volume: 95 ml; Contrast route: INTRAVENOUS (IV); COMPARISON: CR XR hip RT 2-3V wo/w pel* [id number] 01/13/2021 10:05 AM RADIATION DOSE METRICS: Total DLP (mGy-cm): 656.56 FINDINGS: VASCULATURE: Pulmonary arteries: Normal. No pulmonary emboli. Aorta: No aortic aneurysm. No aortic dissection. 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 There is scattered atherosclerotic plaque in the superior mesenteric artery without significant focal stenosis. Inferior mesenteric artery is patent. Renal arteries: There atherosclerotic plaque in the proximal left renal artery with [id number] stenosis. There is atherosclerotic plaque in the proximal right renal artery without significant stenosis. Right iliac arteries: No occlusion or significant stenosis. Left iliac arteries: No occlusion or significant stenosis. CHEST: Lungs: Unremarkable. No consolidation. No masses. Pleural spaces: Unremarkable. No pneumothorax. No pleural effusion. Heart: Unremarkable. No cardiomegaly. No pericardial effusion. ABDOMEN AND PELVIS: Liver: There are cystic lesions in the liver with benign features the larger of which measures 2.0 cm in the right hepatic lobe. Follow-up is not necessary. Gallbladder and bile ducts: Unremarkable. No calcified stones. No ductal dilation. Pancreas: Unremarkable. No mass. No ductal dilation. Spleen: Unremarkable. No splenomegaly. Adrenal glands: Unremarkable. No mass. Kidneys and ureters: Bilateral renal cysts with benign features the larger of which measures 14 mm in the left kidney. Follow-up is not necessary. Stomach and bowel: Colonic constipation is present. Bowel in the pelvic region is obscured by artifact. Appendix: No evidence of appendicitis. Intraperitoneal space: Unremarkable. No free air. No significant fluid collection. Urinary bladder: Bladder is partially obscured by artifact. Reproductive: Prostate region is obscured by artifact. Lymph nodes: Unremarkable. No enlarged lymph nodes. Bones/joints: There are bilateral total hip replacements with resultant artifact obscuring adjacent structures. There are degenerative changes in the spine. Grade 1 degenerative retrolisthesis of L5 on S1. Multilevel lumbar broad-based disc osteophyte complexes contribute to bilateral neural foraminal narrowing. Soft tissues: There are benign-appearing soft tissue calcifications. CT/CT angio abdomen pelvis [id number] IMPRESSION: 1. Colonic constipation is present. 2. 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 3. There is atherosclerotic plaque in the proximal left renal artery with [id number] stenosis. 4. Prostate and rectal region is obscured by artifact from the bilateral total hip replacements.
--- NOTE | 2022-02-07 20:43 | ED_ITS ---
HPI - General Adult General: Chief complaint: Weakness Stated complaint: fall/weakness/low bp/SOB/bloody stool/abd pain Time Seen by Provider: 02/07/22 20:25 History of Present Illness: Patient is an 86-year-old male with a history of prior GI bleed, TIA, aortic regurgitation who presents the emergency room with concerns of rectal bleeding. Patient says that he has had 2 episodes of rectal bleeding earlier today. Patient noticed diarrhea with gross blood and dark tarry blood this morning. Patient reports mild periumbilical pain. Patient denies any hemoptysis. No prior history of anticoagulation or cirrhosis. Since his after, patient report feeling very lightheaded and short of breath. Patient also reports feeling fatigued. Onset: earlier today Duration:ongoing Location:home Severity:moderate Associated symptoms: Deny chest pain, dyspnea, nausea, rash, palpitations or vomiting Review of Systems Const: Denies: fever(s) or chills Eyes: Denies: change in vision ENMT: Denies: mouth pain Card: Denies: chest pain or palpitations Resp: Denies: dyspnea or non-productive cough GI: Reports: abdominal pain and other (+blood in stool); Denies: nausea, vomiting or diarrhea : Denies: dysuria Musc: Denies: extremity pain Skin/Breast: Denies: rash or new lesions Neuro: Denies: weakness in extremities Psych: Reports: other (Normal mood) Jimmy/Lymph: Denies: easy bruising PFS ED PFSH: Medical History CHF (congestive heart failure), NYHA class III Chronic neck pain Dyslipidemia History of nonmelanoma skin cancer History of stroke Left side weakness Hypertension Spinal osteoarthritis Surgical History History of carpal tunnel surgery right year 1999 History of hernia repair 1983,1987,1997 History of hip replacement, total bilateral History of neck surgery 2012 History of prostatectomy History of shoulder surgery right History of transurethral resection of prostate Family History Other Cancer Hypertension Social History Second hand smoke exposure: No Smoking risk assessment/counseling performed?: No Alcohol intake: never Desire information about alcohol rehabilitation?: No Counseling given: No Desire information about substance/drug rehabilitation?: No Counseling given: No Caregiver/support person: No Lives independently: Yes Household members: spouse Housing: House Marital status: service: No Current occupational status: employed Current occupation: [employer] Pets and animals: Yes History of recent travel: No Current gender identity: Male Physical Exam Const: COMMON NORMALS: alert HENMT: COMMON NORMALS: atraumatic HEAD & SCALP: atraumatic MOUTH: moist mucous membranes not abnormal Eye: COMMON NORMALS: EOMs intact bilaterally and conjunctivae normal CONJUNCTIVA: Yes conjunctivae normal Neck/C-Spine: COMMON NORMALS: full ROM and supple Resp: COMMON NORMALS: normal respiratory effort and clear to auscultation bilaterally AUSCULTATION: clear to auscultation bilaterally Cardio: COMMON NORMALS: regular rate RATE: regular rate GI: COMMON NORMALS: Soft to palpation PALPATION: Yes Soft to palpation OTHER: +mild focal periumbilical TTP. NO guarding rebound, guarding, rigidity. No CVA tenderness to percussion. Neg Olivera/Neg McBurney's point tenderness, no suprabupic tenderness to palpation. RECTAL: wine colored blood/hemoocult positive Extremity: COMMON NORMALS: full ROM Neuro: SENSORIUM/ORIENTATION: Yes alert MOTOR EXAM: No Abnormal motor strength present and Other motor observations present (no focal motor deficits) Psych: COMMON NORMALS: speech normal SPEECH: Yes normal speech MOOD & AFFECT: Yes euthymic mood Course Vital Signs: Vital signs: Vital Signs Temperature 98.1 F 02/07/22 20:14 Pulse Rate 90 02/07/22 20:21 Respiratory Rate 14 02/07/22 20:21 Blood Pressure 95/74 02/07/22 20:21 Pulse Oximetry 96 02/07/22 20:21 [facility] - General Adult Medical Decision Making 86-year-old male with history of prior GI bleed, TIA, aortic regurgitation who presents to the emergency room for evaluation of 2 episodes of bloody stool and 1 episode of melena this AM. On exam, patient has soft blood pressure of 90/50. Patient has mild periumbilical tenderness to palpation. Rectal exam showed win e colored blood and dark stools. Patient has a hemoglobin 11.3 down from baseline 13-14. Patient has mild periumbilical tenderness to palpation. Patient received Protonix. CTA abdomen pelvis did not show any focal finding. Patient initially presented mildly hypotensive 80/40 that improved after 1 L fluid. Given low hemoglobin as well as low hypotension, and lightheadedness upon standing up, I have discussed case Dr. Duncan who will follow patient. Patient will be mated to hospital for c oncerns of possible GI bleeding and peptic ulcer. Disposition: admission Lab Data : 02/07/22 20:35 02/07/22 20:35 Radiology Impressions Chest X-Ray 02/07/22 20:19 IMPRESSION: 1. COPD morphology of the chest. 2. No acute findings.Non acute findings as described above. Abdomen/Pelvis CTA 02/07/22 20:29 IMPRESSION: 1. Colonic constipation is present. 2. 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 3. There is atherosclerotic plaque in the proximal left renal artery with diip-mc-ekhhymiw stenosis. 4. Prostate and rectal region is obscured by artifact from the bilateral total hip replacements. Laboratory Results WBC 5.3 10^3/uL (4.0-10.0) 02/07/22 20:35 RBC 3.32 10^6/uL (4.1-5.3) L 02/07/22 20:35 Hgb 11.3 g/dL (11.7-16.6) L 02/07/22 20:35 Hct 32.8 % (42.0-52.0) L 02/07/22 20:35 MCV 98.8 fl (80-94) H 02/07/22 20:35 MCH 34.0 pg (28.0-34.0) 02/07/22 20:35 MCHC 34.5 g/dL (30.0-36.0) 02/07/22 20:35 RDW 13.9 % (12.1-15.1) 02/07/22 20:35 Plt Count 141 10^3/cmm (130-400) 02/07/22 20:35 MPV 10.4 fL (7.4-10.4) 02/07/22 20:35 Neut % (Auto) 71.3 % 02/07/22 20:35 Lymph % (Auto) 18.3 % 02/07/22 20:35 [place] % (Auto) 9.4 % 02/07/22 20:35 Eos % (Auto) 0.6 % 02/07/22 20:35 Baso % (Auto) 0.2 % 02/07/22 20:35 Neut # (Auto) 3.79 10^3/uL (1.8-7.7) 02/07/22 20:35 Lymph # (Auto) 1.0 10^3/uL (0.8-4.8) 02/07/22 20:35 [place] # (Auto) 0.5 10^3/uL (0.2-0.9) 02/07/22 20:35 Eos # (Auto) 0.0 10^3/uL (0.0-0.8) 02/07/22:35 Baso # (Auto) 0.0 10^3/uL (0.0-0.1) 02/07/22 20:35 Nucleated RBC % (auto) 0 % 02/07/22: Nucleated RBCs # 0.0 /100WBC 02/07/22: PT 14.50 SECONDS (12.1-14.9) 02/07/22 20:35 INR 1.09 (0.8-1.2) 02/07/22 20:35 APTT 31.1 SECONDS (23.9-36.7) 02/07/22 20:35 Sodium 137 mmol/L (136-145) 02/07/22 20:35 Potassium 4.7 mmol/L (3.5-5.1) 02/07/22 20:35 Chloride 102 mmol/L (98-107) 02/07/22:35 Carbon Dioxide 26 mmol/L (22-29) 02/07/22 20:35 Anion Gap 13.7 (5-19) 02/07/22 20:35 BUN 63 mg/dL (8-23) H 02/07/22 20:35 Creatinine 0.8 mg/dL (0.7-1.2) 02/07/22 20:35 GFR Calculation Not Reportable 02/07/22 20: Glucose 129 mg/dL (65-115) H 02/07/22 20:35 Calculated Osmolality 304 mOsm/kg (285-295) H 02/07/22 20:35 Lactate 1.1 mmol/L (0.5-2.2) 02/07/22 20:35 Calcium 9.4 mg/dL (8.5-10.5) 02/07/22 20:35 Total Bilirubin 0.9 mg/dL (0.15-1.2) 02/07/22 20:35 AST 20 U/L (0-40) 02/07/22 20:35 ALT 18 U/L (0-41) 02/07/22 20:35 Alkaline Phosphatase 42 IU/L (40-130) 02/07/22 20:35 Troponin T Baseline 30 ng/L (0-15) H 02/07/22 20:35 NT-Pro-B Natriuret Pep 824 pg/mL (0-450) H 02/07/22 20:35 Total Protein 6.2 g/dL (6.6-8.7) L 02/07/22 20:35 Albumin 3.9 g/dL (3.5-5.2) 02/07/22 20:35 Globulin 2.3 g/dL (1.3-4.6) 02/07/22 20:35 Lipase 25 U/L (13-60) 02/07/22 20:35 Urine Color Yellow (Yellow) 02/07/22 20:39 Urine Appearance Clear (CLEAR) 02/07/22 20:39 Urine pH 6 (5-7) 02/07/22 20:39 Ur Specific [place] 1.020 (1.005-1.030) 02/07/22 20:39 Urine Protein Neg (Negative) 02/07/22 20:39 Urine Glucose (UA) Norm (Normal) 02/07/22 20:39 Urine Ketones Negative (Negative) 02/07/22 20:39 Urine Blood Neg (Negative) 02/07/22 20:39 Urine Nitrate Negative (Negative) 02/07/22 20:39 Urine Bilirubin Neg (Negative) 02/07/22 20:39 Urine Urobilinogen Norm mg/dL (Negative) 02/07/22 20:39 Ur Leukocyte Esterase Negative (Negative) 02/07/22 20:39 Imaging Data Other Imaging: Radiologist's impression: [address] [address] [address] Scan Report Signed Patient: Silvio Chavira Aleksandr Unit #: [id number] : 1935 Age/Sex: 86 / M ADM Date: 02/07/22 Loc: ER Room/Bed: Attending Dr: Ordering Provider/Ordering MD: Mustapha Mendoza MD Date of Service: 02/07/22 Procedure(s): CT angio abdomen pelvis 13676 Accession Number(s): [id number] Report Number: [id number] PROCEDURE INFORMATION: Exam: CTA Chest and Abdomen/Pelvis With Contrast Exam date and time: 02/07/2022 9:19 PM Age: 86 years old Clinical indication: Hypotension; Prior surgery; Surgery type: Hernia repair. Prostatectomy. Bilat hips; Patient HX: Hypotensive with rectal bleeding. ; Additional info: Rectal bleeding, hypotension TECHNIQUE: Imaging protocol: Computed tomographic angiography of the chest, abdomen and pelvis with contrast. 3D rendering (Not supervised by radiologist): MIP and/or 3D reconstructed images were created by the technologist. Radiation optimization: All CT scans at this facility use at least one of these dose optimization techniques: automated exposure control; mA and/or kV adjustment per patient size (includes targeted exams where dose is matched to clinical indication); or iterative reconstruction. Contrast material: OMNI 350; Contrast volume: 95 ml; Contrast route: INTRAVENOUS (IV);? COMPARISON: CR XR hip RT 2-3V wo/w pel* [id number] 01/13/2021 10:05 AM RADIATION DOSE METRICS: Total DLP (mGy-cm): 656.56 FINDINGS: VASCULATURE: Pulmonary arteries: Normal. No pulmonary emboli. Aorta: No aortic aneurysm. No aortic dissection. 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 There is scattered atherosclerotic plaque in the superior mesenteric artery without significant focal stenosis. Inferior mesenteric artery is patent. Renal arteries: There atherosclerotic plaque in the proximal left renal artery with siva-yq-feartzps stenosis. There is atherosclerotic plaque in the proximal right renal artery without significant stenosis. Right iliac arteries: No occlusion or significant stenosis. Left iliac arteries: No occlusion or significant stenosis. CHEST: Lungs: Unremarkable. No consolidation. No masses. Pleural spaces: Unremarkable. No pneumothorax. No pleural effusion. Heart: Unremarkable. No cardiomegaly. No pericardial effusion. ABDOMEN AND PELVIS: Liver: There are cystic lesions in the liver with benign features the larger of which measures 2.0 cm in the right hepatic lobe. Follow-up is not necessary. Gallbladder and bile ducts: Unremarkable. No calcified stones. No ductal dilation. Pancreas: Unremarkable. No mass. No ductal dilation. Spleen: Unremarkable. No splenomegaly. Adrenal glands: Unremarkable. No mass. Kidneys and ureters: Bilateral renal cysts with benign features the larger of which measures 14 mm in the left kidney. Follow-up is not necessary. Stomach and bowel: Colonic constipation is present. Bowel in the pelvic region is obscured by artifact. Appendix: No evidence of appendicitis. Intraperitoneal space: Unremarkable. No free air. No significant fluid collection. Urinary bladder: Bladder is partially obscured by artifact. Reproductive: Prostate region is obscured by artifact. Lymph nodes: Unremarkable. No enlarged lymph nodes. Bones/joints: There are bilateral total hip replacements with resultant artifact obscuring adjacent structures. There are degenerative changes in the spine. Grade 1 degenerative retrolisthesis of L5 on S1. Multilevel lumbar broad-based disc osteophyte complexes contribute to bilateral neural foraminal narrowing. Soft tissues: There are benign-appearing soft tissue calcifications. CT/CT angio abdomen pelvis 55422 IMPRESSION: 1. Colonic constipation is present. 2. 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 3. There is atherosclerotic plaque in the proximal left renal artery with jfcj-yz-heogyhqq stenosis. 4. Prostate and rectal region is obscured by artifact from the bilateral total hip replacements.? ? Dictated By: Kezia Townsend MD Signed By: Kezia Townsend MD Signed Date/Time: 02/07/222149 DD/ [address] [address] XRay Report Signed Patient: Silvio Chavira Unit #: [id number] : 1935 Age/Sex: 86 / M ADM Date: 02/07/22 Loc: ER Room/Bed: Attending Dr: Ordering Provider/Ordering MD: Mustapha Mendoza MD Date of Service: 02/07/22 Procedure(s): XR chest 1V portable [id number] Accession Number(s): [id number] Report Number: [id number] PROCEDURE INFORMATION: Exam: XR Chest Exam date and time: 02/07/2022 8:25 PM Age: 86 years old Clinical indication: Dyspnea TECHNIQUE: Imaging protocol: Radiologic exam of the chest. Views: 1 view. COMPARISON: CR (CHEST, ) 01/27/2022 9:56 PM FINDINGS: Tubes, catheters and devices: Prosthetic right humeral head. Lungs: COPD morphology of the chest. Pleural spaces: Unremarkable. No pleural effusion. No pneumothorax. Heart/Mediastinum: Unremarkable. No cardiomegaly. Vasculature: There is calcified plaque in the aortic knob. Bones/joints: There are degenerative changes in the visualized spine. XR/XR chest 1V portable [id number] IMPRESSION: 1. COPD morphology of the chest. 2. No acute findings.Non acute findings as described above. ? Dictated By: Kezia Townsend MD Signed By: Kezia Townsend MD Signed Date/Time: 02/07/222109 DD/ 24 Discharge Plan Discharge Condition: Stable Prescriptions: No Action coenzyme Q10 [Co Q-10] 100 mg capsule 100 mg PO DAILY@1800 0RF acetaminophen [Tylenol Arthritis Pain] 650 mg tablet extended release 650 mg PO Q12H PRN (Reason: pain) 0RF niacinamide 500 mg tablet 500 mg PO DAILY@1800 0RF potassium gluconate 595 mg (99 mg) tablet 297.5 mg PO DAILY 0RF multivitamin [Multiple Vitamins] Tablet 1 tab PO BID@, 0RF Probiotic 3 billion cell Capsule 3,000 mmu cells PO DAILY 0RF aspirin 325 mg tablet 325 mg PO DAILY Qty: 60 2RF Cardio [place]aver 1 tab PO BID 0RF furosemide 40 mg tablet 40 mg PO EVERY OTHER DAY 0RF lisinopril 20 mg tablet 20 mg PO DAILY 0RF simvastatin 10 mg tablet 10 mg PO BEDTIME 0RF spironolactone 25 mg tablet 12.5 mg PO EVERY OTHER DAY 0RF Referrals: Madelin Bellamy, ENGRAVING OPERATOR-C [Primary Care Provider] - Coding Level of Care Code ED Podopediatrician for Kamilla Fwd Exam Comprehensive
[2022-02-07 20:49] LABS: Basophils % 0.2 %; Eosinophils % 0.6 %; Hematocrit 32.8 % (42.0-52.0); Hemoglobin 11.3 g/dL (11.7-16.6); Lymphocytes % 18.3 %; Mean Corpuscular HGB Conc 34.5 g/dL (30.0-36.0); Mean Corpuscular Volume 98.8 fl (80-94); Mean Platelet Volume 10.4 fL (7.4-10.4); Monocytes # 0.5 10^3/uL (0.2-0.9); Monocytes % 9.4 %; Neutrophils # 3.79 10^3/uL (1.8-7.7); Neutrophils % 71.3 %; Nucleated Red Blood Cells % 0 %; Platelet Count 141 10^3/cmm (130-400); Red Blood Count 3.32 10^6/uL (4.1-5.3); Red Cell Distribution Width 13.9 % (12.1-15.1); White Blood Count 5.3 10^3/uL (4.0-10.0)
[2022-02-07 21:03] LABS: INR 1.09 (0.8-1.2)
[2022-02-07 21:04] LABS: Partial Thromboplastin Time 31.1 SECONDS (23.9-36.7)
[2022-02-07] MEDS: sodium chloride 0.9% 1,000 ML 999 ML IV (21:06)
[2022-02-07] MEDS: pantoprazole 40 mg SDV 80 MG IVP (21:06)
[2022-02-07 21:07] LABS: Add Urine Microscopic? NO; Charge for UA Resulting for Rev
[2022-02-07 21:08] LABS: Troponin(5th) Baseline 30 ng/L (0-15)
[2022-02-07 21:09] LABS: Lactate (Lactic Acid level) 1.1 mmol/L (0.5-2.2)
[2022-02-07 21:09] LABS: Bilirubin Urine Neg (Negative); Blood Urine Neg (Negative); Glucose Urine UA Norm (Normal); Ketones Urine Negative (Negative); Leukocyte Esterase Urine Negative (Negative); Nitrate Urine Negative (Negative); Protein Urine Neg (Negative); Urine Appearance Clear (CLEAR); Urine Color Yellow (Yellow); Urobilinogen Urine Norm (Negative); pH Urine 6 (5-7)
[2022-02-07 21:18] LABS: Alanine Aminotransferase 18 U/L (0-41); Albumin Level 3.9 g/dL (3.5-5.2); Alkaline Phosphatase 42 IU/L (40-130); Aspartate Amino Transferase 20 U/L (0-40); Blood Urea Nitrogen 63 mg/dL (8-23); Calcium 9.4 mg/dL (8.5-10.5); Carbon Dioxide 26 mmol/L (22-29); Chloride 102 mmol/L (98-107); Globulin 2.3 g/dL (1.3-4.6); Glucose 129 mg/dL (65-115); Lipase 25 U/L (13-60); NT Pro B Type Natriuretic Pept 824 pg/mL (0-450); Osmolality Calculated 304 mOsm/kg (285-295); Sodium 137 mmol/L (136-145); Total Bilirubin 0.9 mg/dL (0.15-1.2); Total Protein 6.2 g/dL (6.6-8.7)
[2022-02-07] MEDS: iohexol 350 mg/mL 100 mL Btl IV (21:19)
[2022-02-07 21:22] LABS: Anion Gap 13.7 (5-19); Potassium 4.7 mmol/L (3.5-5.1)
[2022-02-07 22:00] VITALS: PULSE 70
[2022-02-07 22:17] VITALS: PULSE 70
--- NOTE | 2022-02-07 22:19 | ECG_ITS ---
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 Measurements Intervals Drew Rate: 70 P: 66 TX: 157 QRS: -87 QRSD: 129 T: 70 QT: 462 QTc: 500 Interpretive Statements SINUS RHYTHM WITH OCCASIONAL VENTRICULAR PREMATURE COMPLEXES RIGHT BUNDLE BRANCH BLOCK [120+ ms QRS DURATION, UPRIGHT V1, 40+ ms S IN I/aVL/V4/V5/V6] LEFT ANTERIOR FASCICULAR BLOCK [QRS AXIS <= -45, QR IN I, RS IN II] Compared to ECG 02/07/2022 20:35:08 Myocardial infarct finding no longer present Electronically Signed On 02-08-2022 13:25:42 CDT by Christiano Waller M.D. [id number]
--- NOTE | 2022-02-07 22:22 | P.HP_ITS ---
Providers/Chief Complaint Admitting Physician: Tay Wolf MD Primary Care Provider: SUZE Chairez-C Chief Complaint: fall/weakness/low bp/SOB/bloody stool/abd pain History of Present Illness Silvio Chavira is a 86 year old male hypertension, hyperlipidemia, vitamin D deficiency, h/o stroke with left sided weakness?,HFrEF , Moderate AI?, was brought in with chief complaint of experiencing rectal bleeding since this morning Patient is complaining of bright red blood, he is also having diarrhea. Upon arrival in the ER he was worked up for above-mentioned complaint: Pertinent imaging studies: CT angio abdomen pelvis:Colonic constipation is present. 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 There is atherosclerotic plaque in the proximal left renal artery with rofd-uf-isbndeye stenosis. XR Chest: No acute findings. Pertinent labs: WBC 5.3, H&H:11.3/32 , plt : 141 , serum sodium 137 serum potassium 4.7, BUN serum creatinine 63 / 0.8 Troponin: 30,21, proBNP 824 Review of Systems General: Reports: 10 or more systems reviewed and unremarkable except in HPI and below Const: Denies: fever(s), chills, body aches, change in appetite or diaphoresis Card: Denies: palpitations, edema, swelling of feet/ankles, dyspnea on exertion, orthopnea or leg pain with exertion Resp: Denies: dyspnea, productive cough, wheezing or pain on inspiration GI: Denies: abdominal pain, nausea, vomiting, diarrhea or constipation : Denies: flank pain or difficulty urinating Musc: Denies: back pain, extremity pain or extremity swelling Neuro: Denies: headache(s), difficulty walking or confusion Medications/Allergies Home Medications Medication Instructions Recorded Confirmed Last Taken Type acetaminophen 650 mg 650 mg PO Q12H PRN 08/22/19 01/28/22 Unknown History tablet,extended release (Tylenol Arthritis Pain) coenzyme Q10 100 mg capsule (Co 100 mg PO DAILY@1800 08/22/19 01/28/22 01/27/22 History Q-10) lactobacillus combination no.4 3 3,000 mmu cells PO DAILY 06/21/20 01/28/22 01/28/22 History billion cell capsule (Probiotic) multivitamin (Multiple Vitamins) 1 tab PO BID@,18 06/21/20 01/28/22 01/28/22 History niacinamide 500 mg tablet 500 mg PO DAILY@1800 07/01/20 01/28/22 01/27/22 History potassium gluconate 595 mg (99 mg) 297.5 mg PO DAILY tab 08/21/21 01/28/22 01/28/22 History tablet Cardio Hollister 1 tab PO BID 01/28/22 01/28/22 01/28/22 History aspirin 325 mg tablet 325 mg PO DAILY #60 tab 01/28/22 01/28/22 01/28/22 Rx furosemide 40 mg tablet 40 mg PO EVERY OTHER DAY 01/28/22 01/28/22 01/28/22 History lisinopril 20 mg tablet 20 mg PO DAILY 01/28/22 01/28/22 01/28/22 History simvastatin 10 mg tablet 10 mg PO BEDTIME 01/28/22 01/28/22 01/27/22 History spironolactone 25 mg tablet 12.5 mg PO EVERY OTHER DAY 01/28/22 01/28/22 01/28/22 History Allergies Allergy/AdvReac Type Severity Reaction Status Date / Time metoprolol AdvReac ALGY-Difficulty Verified 08/21/21 13:48 Breathing PFSH Acute PFSH: Medical History CHF (congestive heart failure), NYHA class III Chronic neck pain Dyslipidemia History of nonmelanoma skin cancer History of stroke Left side weakness Hypertension Spinal osteoarthritis Surgical History History of carpal tunnel surgery right year 1999 History of hernia repair 1983,1987,1997 History of hip replacement, total bilateral History of neck surgery 2011 History of prostatectomy History of shoulder surgery right History of transurethral resection of prostate Family History Other Cancer Hypertension Social History Second hand smoke exposure: No Smoking risk assessment/counseling performed?: No Alcohol intake: never Desire information about alcohol rehabilitation?: No Counseling given: No Desire information about substance/drug rehabilitation?: No Counseling given: No Caregiver/support person: No Lives independently: Yes Household members: spouse Housing: House Marital status: service: No Current occupational status: employed Current occupation: [employer] Pets and animals: Yes History of recent travel: No Current gender identity: Male Vitals/I&O/Wt Last Vital Signs Temp 98.1 F 02/07/22 20:14 Pulse 90 02/07/22 20:21 Resp 14 02/07/22 20:21 BP 95/74 02/07/22 20:21 Pulse Ox 96 02/07/22 20:21 Weight last 48 hrs Weight 61.235 kg Physical Exam Const: COMMON NORMALS: patient oriented x3 HENMT: COMMON NORMALS: normocephalic and atraumatic HEAD & SCALP: normocephalic and atraumatic Chest: CHEST: Yes Symmetrical chest wall rise Resp: COMMON NORMALS: normal respiratory effort and clear to auscultation bilaterally EFFORT & INSPECTION: Yes symmetric chest movement AUSCULTATION: clear to auscultation bilaterally Cardio: COMMON NORMALS: regular rate, regular rhythm, S1 normal heart sound present, S2 normal heart sound present, No gallops present (Cardio), No murmurs present (Cardio), No rub (Cardio) and Peripheral pulses 2+ throughout RATE: regular rate RHYTHM: regular rhythm HEART SOUNDS: S1 normal heart sound present and S2 normal heart sound present PERIPHERAL PULSES: Peripheral pulses 2+ throughout GI: COMMON NORMALS: Normal to inspection, nondistended, normoactive bowel sounds present, Soft to palpation, non-tender, No hepatosplenomegaly present and no masses AUSCULTATION: Yes normoactive bowel sounds PALPATION: Yes Soft to palpation and Yes No hepatosplenomegaly present RECTAL EXAM: Yes deferred Extremity: COMMON NORMALS: no clubbing, cyanosis or edema and no pedal edema Neuro: COMMON NORMALS: patient oriented x3 Data : 02/08/22 04:20 02/08/22 04:20 A&P Assessment and plan (1) CHF (congestive heart failure), NYHA class III: Status: Acute Qualifiers: Congestive heart failure chronicity: chronic Congestive heart failure type: systolic Qualified Code(s): I50.22 - Chronic systolic (congestive) heart failure (2) PVC (premature ventricular contraction): Status: Acute (3) Aortic regurgitation: Status: Acute Qualifiers: Cardiac valve disease etiology: nonrheumatic Qualified Code(s): I35.1 - Nonrheumatic aortic (valve) insufficiency (4) Bifascicular block: Status: Acute (5) History of stroke: Status: Acute (6) Hypertension: Status: Chronic Qualifiers: Hypertension type: essential hypertension Qualified Code(s): I10 - Essential (primary) hypertension Plan 86 year old male hypertension, hyperlipidemia, vitamin D deficiency, h/o stroke with left sided weakness?,HFrEF , Moderate AI?, was brought in with chief complaint of experiencing rectal bleeding since this morning Patient is complaining of bright red blood, he is also having diarrhea. Assessment: GI bleed Anemia Hypertension h/o stroke with left sided weakness?, HFrEF , Moderate AI? Plan: Monitor H&H every 4 hours Transfuse to maintain hemoglobin greater than 7 Protonix IV 40 daily Currently on clear liquid diets ER has consulted Dr. Silva for possible scope Heart failure with reduced ejection fraction: Currently compensated CODE STATUS: Full code DVT prophylaxis: On SCDs Attestations Medical Necessity Statement*: Patient is in hospital for management of GI bleed. Anticipated length of stay greater than 2 midnights. Time Spent in Patient Care: Greater than 35 minutes (>than 50% of time spent in counselling and/or direct pt care on unit) . Coding Level of Care Code Acute Ship'S Pilot for g Fwd Exam Detailed Diagnoses CHF (congestive heart failure), NYHA class III I50.22 Congestive heart failure chronicity: chronic Congestive heart failure type: systolic PVC (premature ventricular contraction) I49.3 Aortic regurgitation I35.1 Cardiac valve disease etiology: nonrheumatic Bifascicular block I45.2 History of stroke Z86.73 Hypertension I10 Hypertension type: essential hypertension
[2022-02-07 22:37] VITALS: BP 112/49; PULSE 70; RESP 18; O2SAT 98
[2022-02-07 22:42] LABS: Troponin 5 2HR 21.62 ng/L (0-15)
[2022-02-07 22:46] LABS: Troponin 5 2HR Delta -8.38 ABS# (0-10)
[2022-02-07 23:39] VITALS: BP 111/57; PULSE 67; RESP 16; TEMP 36.6; O2SAT 98
[2022-02-08] VITALS (7 sets, daily range): BP systolic 104–134; BP diastolic 62–82; PULSE 60–78; RESP 12–19; TEMP 36.3–36.8; O2SAT 92–97
[2022-02-08 05:17] LABS: Basophils % 0.3 %; Eosinophils % 0.8 %; Hematocrit 27.1 % (42.0-52.0); Hemoglobin 9.3 g/dL (11.7-16.6); Lymphocytes # 1.2 10^3/uL (0.8-4.8); Mean Corpuscular HGB Conc 34.3 g/dL (30.0-36.0); Mean Corpuscular Hemoglobin 33.6 pg (28.0-34.0); Mean Corpuscular Volume 97.8 fl (80-94); Mean Platelet Volume 10.4 fL (7.4-10.4); Monocytes # 0.4 10^3/uL (0.2-0.9); Monocytes % 10.8 %; Neutrophils # 2.07 10^3/uL (1.8-7.7); Neutrophils % 55.6 %; Nucleated Red Blood Cells % 0 %; Platelet Count 117 10^3/cmm (130-400); Red Blood Count 2.77 10^6/uL (4.1-5.3); Red Cell Distribution Width 13.7 % (12.1-15.1); White Blood Count 3.7 10^3/uL (4.0-10.0)
[2022-02-08 05:26] LABS: INR 1.12 (0.8-1.2)
[2022-02-08 05:38] LABS: Alanine Aminotransferase 13 U/L (0-41); Albumin Level 3.2 g/dL (3.5-5.2); Alkaline Phosphatase 35 IU/L (40-130); Anion Gap 11.1 (5-19); Aspartate Amino Transferase 13 U/L (0-40); Blood Urea Nitrogen 53 mg/dL (8-23); Calcium 8.3 mg/dL (8.5-10.5); Carbon Dioxide 24 mmol/L (22-29); Chloride 109 mmol/L (98-107); Glucose 95 mg/dL (65-115); Osmolality Calculated 304 mOsm/kg (285-295); Potassium 4.1 mmol/L (3.5-5.1); Sodium 140 mmol/L (136-145); Total Bilirubin 0.9 mg/dL (0.15-1.2); Total Protein 5.2 g/dL (6.6-8.7)
[2022-02-08] MEDS: pantoprazole 40 mg SDV IVP ×2 (08:24→18:16)
--- NOTE | 2022-02-08 09:00 | PM.CONSULT ---
Providers/Reason For Consult Consulting Physician/Specialty*: Endoscopy Reason for Consult*: Acute gastrointestinal blood loss anemia Attending Physician: Thuy Anderson MD Primary Care Provider: PRIYA Chairez History of Present Illness History of Present Illness Silvio Chavira is a 86 year old male who began having diarrhea of dark stool and also bright red blood yesterday. He said quite a bit of diarrhea. He is got some epigastric discomfort and also lower abdominal discomfort. He had an EGD in 2019 which revealed peptic ulcer disease. For some reason he is not on proton pump inhibitor or H2 cece therapy. Of note, he does not take NSAIDs but does take aspirin. Review of Systems General: Reports: 10 or more systems reviewed and unremarkable except in HPI and below Const: Denies: fever(s), chills, body aches, change in appetite or diaphoresis Card: Denies: palpitations, edema, swelling of feet/ankles, dyspnea on exertion, orthopnea or leg pain with exertion Resp: Denies: dyspnea, productive cough, wheezing or pain on inspiration GI: Denies: abdominal pain, nausea, vomiting, diarrhea or constipation : Denies: flank pain or difficulty urinating Musc: Denies: back pain, extremity pain or extremity swelling Neuro: Denies: headache(s), difficulty walking or confusion Medications/Allergies Home Medications Medication Instructions Recorded Confirmed Last Taken Type acetaminophen 650 mg 650 mg PO Q12H PRN 08/22/19 01/28/22 Unknown History tablet,extended release (Tylenol Arthritis Pain) coenzyme Q10 100 mg capsule (Co 100 mg PO DAILY@1800 08/22/19 01/28/22 01/27/22 History Q-10) lactobacillus combination no.4 3 3,000 mmu cells PO DAILY 06/21/20 01/28/22 01/28/22 History billion cell capsule (Probiotic) multivitamin (Multiple Vitamins) 1 tab PO BID@,18 06/21/20 01/28/22 01/28/22 History niacinamide 500 mg tablet 500 mg PO DAILY@1800 07/01/20 01/28/22 01/27/22 History potassium gluconate 595 mg (99 mg) 297.5 mg PO DAILY tab 08/21/21 01/28/22 01/28/22 History tablet Cardio [place] 1 tab PO BID 01/28/22 01/28/2222 History aspirin 325 mg tablet 325 mg PO DAILY #60 tab 01/28/22 01/28/22 01/28/22 Rx furosemide 40 mg tablet 40 mg PO EVERY OTHER DAY 01/28/22 01/28/22 01/28/22 History lisinopril 20 mg tablet 20 mg PO DAILY 01/28/22 01/28/22 01/28/22 History simvastatin 10 mg tablet 10 mg PO BEDTIME 01/28/22 01/28/22 01/27/22 History spironolactone 25 mg tablet 12.5 mg PO EVERY OTHER DAY 01/28/22 01/28/22 01/28/22 History Allergies Allergy/AdvReac Type Severity Reaction Status Date / Time metoprolol AdvReac ALGY-Difficulty Verified 08/21/21 13:48 Breathing Current Medications Generic Name Dose Route Start Last Admin Trade Name Freq PRN Reason Stop Dose Admin Pantoprazole Sodium 40 mg 02/08/22 09:00 02/08/22 08:24 Pantoprazole 40 Mg Sdv IVP 40 mg BID LUCINA Administration PFSH Acute PFSH: Medical History CHF (congestive heart failure), NYHA class III Chronic neck pain Dyslipidemia History of nonmelanoma skin cancer History of stroke Left side weakness Hypertension Spinal osteoarthritis Surgical History History of carpal tunnel surgery right year 1999 History of hernia repair 1983,1987,1997 History of hip replacement, total bilateral History of neck surgery 2011 History of prostatectomy History of shoulder surgery right History of transurethral resection of prostate Family History Other Cancer Hypertension Social History Second hand smoke exposure: No Smoking risk assessment/counseling performed?: No Alcohol intake: never Desire information about alcohol rehabilitation?: No Counseling given: No Desire information about substance/drug rehabilitation?: No Counseling given: No Caregiver/support person: No Lives independently: Yes Household members: spouse Housing: House Marital status: service: No Current occupational status: employed Current occupation: [employer] Pets and animals: Yes History of recent travel: No Current gender identity: Male Vitals/I&O/Wt Last Vital Signs Temp 97.9 F 02/08/22 07:49 Pulse 67 02/08/22 07:49 Resp 12 02/08/22 07:49 BP 133/68 02/08/22 07:49 Pulse Ox 97 02/08/22 07:49 02/07/22 02/08/22 02/08/22 22:59 06:59 14:59 Intake Total 1000 / 1000 Output Total 200 / 200 480 / 480 Balance 800 / 800 -480 / -480 Weight last 48 hrs Weight 135 lb Physical Exam Narrative: On examination he appeared in no distress. Vital signs as documented. Skin warm and dry and without overt rashes. Neck without JVD. Lungs clear. Heart exam notable for regular rhythm, normal sounds and absence of murmurs, rubs or gallops. Abdomen unremarkable and without evidence of organomegaly, masses, or abdominal aortic enlargement. Data : 02/08/22 04:20 02/08/22 04:20 A&P Assessment and plan (1) Anemia due to GI blood loss: He is never had a colonoscopy, and his last EGD was in 2019 which revealed peptic ulcer disease. I am going to go ahead and do a colonoscopy prep and do a double endoscopy on him in the morning Status: Acute Coding Level of Care Code Acute Emergency Department Physician for [facility] Fwd Diagnoses Anemia due to GI blood loss D50.0
--- NOTE | 2022-02-08 12:38 | P.PN_ITS ---
Subjective Subjective: Seen this morning. Patient does endorse taking naproxen from time to time. He says when he had bleeding ulcers in the past he was told not to take it at all but he does take it as the Tylenol does not help for his arthritis pain. Vitals/I&O/Wt Last Vital Signs Temp 97.5 F L 02/08/22 12:00 Pulse 60 02/08/22 12:00 Resp 18 02/08/22 12:00 BP 110/62 02/08/22 12:00 Pulse Ox 97 02/08/22 12:00 02/07/22 02/08/22 02/08/22 22:59 06:59 14:59 Intake Total 1000 / 1000 Output Total 200 / 200 480 / 480 Balance 800 / 800 -480 / -480 Weight last 48 hrs Weight 61.235 kg Physical Exam Narrative: General: Alert oriented x3, patient seen laying in bed appearing comfortable at this time with at bedside, frail elderly appearing male, no acute distress HEENT: Normocephalic, atraumatic, EOMI, breathing normally Cardio: Regular rate rhythm, normal S1-S2, Respiratory: Good bilateral air entry, no wheezes no rhonchi appreciated GI: Abdomen soft, nontender overall with very mild tenderness in epigastric region reproducible to palpation, nondistended, bowel sounds + Behavior: Appropriate and cooperative Extremities: Lower extremity edema, no cyanosis Neuro: Left-sided hemiparesis from previous stroke Data : 02/08/22 04:20 02/08/22 04:20 A&P Assessment and plan (1) Anemia due to GI blood loss: Status: Acute (2) CHF (congestive heart failure), NYHA class III: Status: Acute Qualifiers: Congestive heart failure type: systolic Congestive heart failure chronicity: chronic Qualified Code(s): I50.22 - Chronic systolic (congestive) heart failure (3) PVC (premature ventricular contraction): Status: Acute (4) Aortic regurgitation: Status: Acute Qualifiers: Cardiac valve disease etiology: nonrheumatic Qualified Code(s): I35.1 - Nonrheumatic aortic (valve) insufficiency (5) Bifascicular block: Status: Acute (6) SOB (shortness of breath) on exertion: Status: Acute (7) Cervical spondylosis with myelopathy: Status: Acute (8) Ulnar nerve entrapment at right elbow: Status: Acute (9) History of nonmelanoma skin cancer: Status: Acute (10) History of stroke: Status: Acute (11) Dyslipidemia: Status: Chronic (12) Hypertension: Status: Chronic Qualifiers: Hypertension type: essential hypertension Qualified Code(s): I10 - Essential (primary) hypertension Plan #GI bleed, bright red blood per rectum, intermittent melena #History of arthritis and on naproxen as needed #Acute blood loss anemia #Hypertension #History of CVA with left-sided hemiparesis #Heart failure reduced ejection fraction #Moderate aortic insufficiency ? Monitor H&H every 6 hours. Transfuse to maintain hemoglobin greater than 7 ? Protonix 40 IV twice daily ? Continue clear liquids. Seen by GI. Dr. Silva to perform EGD and colo noscopy in a.m. Orders written for bowel prep. ? Cautious use of IV fluids and watch for fluid overload due to history of heart failure with reduced ejection fraction. He may need Lasix in between t ransfusions if given. At this time appears to be euvolemic ? Continue on Lasix every other day as home dose ? Hold lisinopril ? Tylenol for pain ? Avoid NSAIDs at this time Full code DVT prophylaxis: On SCDs Attestations Medical Necessity Statement*: Continue in hospital greater than 48-hour stay expected at this time. Going for EGD colonoscopy in a.m. Coding Level of Care Code Acute Costume Director for [facility] Fwd Diagnoses Anemia due to GI blood loss D50.0 CHF (congestive heart failure), NYHA class III I50.22 Congestive heart failure type: systolic Congestive heart failure chronicity: chronic PVC (premature ventricular contraction) I49.3 Aortic regurgitation I35.1 Cardiac valve disease etiology: nonrheumatic Bifascicular block I45.2 SOB (shortness of breath) on exertion R06.02 Cervical spondylosis with myelopathy M47.12 Ulnar nerve entrapment at right elbow G56.21 History of nonmelanoma skin cancer Z85.828 History of stroke Z86.73 Dyslipidemia E78.5 Hypertension I10 Hypertension type: essential hypertension
[2022-02-08] MEDS: atorvastatin 40 mg Tablet 20 MG PO (20:03)
[2022-02-09] VITALS (8 sets, daily range): BP systolic 96–135; BP diastolic 52–87; PULSE 64–86; RESP 16–18; TEMP 36.2–37; O2SAT 91–100
--- NOTE | 2022-02-09 02:08 | PC.NURSE ---
Patient resting in bed has been instructed not to eat or drink after midnight. Patient states that he is feeling much better and has not had anymore bloody stools, no stools at all. Patient is able to use urinal without difficulty. Patient educated to use call light for assistance. Bed is in lowest position an wheels are locked with call late with in reach
[2022-02-09 05:33] LABS: Basophils % 0.3 %; Eosinophils % 1.3 %; Hematocrit 26.4 % (42.0-52.0); Hemoglobin 9.1 g/dL (11.7-16.6); Lymphocytes % 31.8 %; Mean Corpuscular HGB Conc 34.5 g/dL (30.0-36.0); Mean Corpuscular Hemoglobin 34.1 pg (28.0-34.0); Mean Corpuscular Volume 98.9 fl (80-94); Mean Platelet Volume 10.5 fL (7.4-10.4); Monocytes # 0.4 10^3/uL (0.2-0.9); Monocytes % 14.3 %; Nucleated Red Blood Cells % 0 %; Platelet Count 130 10^3/cmm (130-400); Red Blood Count 2.67 10^6/uL (4.1-5.3); Red Cell Distribution Width 13.7 % (12.1-15.1); White Blood Count 3.1 10^3/uL (4.0-10.0)
[2022-02-09 05:57] LABS: Anion Gap 10.1 (5-19); Blood Urea Nitrogen 32 mg/dL (8-23); Calcium 7.7 mg/dL (8.5-10.5); Carbon Dioxide 24 mmol/L (22-29); Chloride 109 mmol/L (98-107); Glucose 88 mg/dL (65-115); Osmolality Calculated 294 mOsm/kg (285-295); Potassium 4.1 mmol/L (3.5-5.1); Sodium 139 mmol/L (136-145)
[2022-02-09] MEDS: pantoprazole 40 mg SDV IVP ×2 (08:06→17:36)
--- NOTE | 2022-02-09 09:37 | PC.NURSE ---
Bedside report received from ADONIS Johnston, at approximately 0700 today.
--- NOTE | 2022-02-09 10:33 | PC.CHAP ---
Pastoral Care Encounter/Spiritual Assessment Type of Contact [] Declined gas appliance servicer visit [] Patient/Family/Request visit [] Outpatient visit [] Follow-up visit [] Physician referral [] Code/Alert [x] Routine visit [] Staff referral [] Actively dying [] Patient sleeping [] Family support [] [] Out of room [] Palliative care [] [] Receiving care in room [] Pre-surgical visit [] Trauma [] Long length of stay [] ICU visit [] Other: Relational/Emotional Strength [x] Patient feels connected with others/family/visitors/staff [] Distress [] Loneliness/isolation [] Abandonment Spirituality of Patient [x] Person of Tatum [x] Attends Christian of their [place] []x Believes in Prayer []x Reads Bible or Latter-Day materials [] There are Spiritual issues to be addressed Lamps Tester And Inspector Interventions [x] Prayer [x] Active listening [x] Non-anxious presence [x] Spiritual/emotional support [] Crisis/trauma care [] Spiritual counseling [] Bereavement support [] Provided bereavement packet [] Provided Bible/devotional materials [] Provided toy/stuffed animal, coloring book to patient or family member [] Provided Communion [] Anointing/[place] [] Salvation []x Completed spiritual assessment [] Other: Impact on Illness or Injury [] Angry [] Fearful [] Anxious [] Often cries [] Exhaustion [] Unable to work [] Unable to attend baptist [] Unable to walk/stand [] Unable to read [] Unable to drive [] Unable to eat/drink [] Unable to sleep [] Unable to be with family [] Patient intubated [] Other: Summary Time spent with patient 15 min
[2022-02-09 11:09] LABS: Iron 102 ug/dL (59-158); Percent Saturation 53.1 % (20-50); Total Iron Binding Capacity 192 mcg/dl; Unsaturated Iron Binding 90 ug/dL (112-347)
--- NOTE | 2022-02-09 12:58 | ANES.PREANE2 ---
Pre-Anesthetic Assessment Height/Weight: Height 1.75 m Weight 61.235 kg Temp Pulse Resp BP Pulse Ox 97.1 F L 64 18 132/67 98 02/09/22 11:49 02/09/22 11:49 02/09/22 11:49 02/09/22 11:49 02/09/22 11:49 Preop Diagnosis: Blood loss anemia Operation Date: 02/09/22 13:30 Proposed Procedures p EGD(Not Applicable) - Jaxson Silva MD s Colonoscopy(Not Applicable) - Jaxson Silva MD Familial anesthetic complications: None Was Beta Eugene taken within 24 hours: N/A Was Clonidine taken within 24 hours: N/A Last intake: Intake Last Liquid Date 02/08/22 Last Liquid Time 11:00 Last Solid Date 02/07/22 Last Solid Time 06:00 Social No alcohol and No tobacco Exam alert, oriented x 3, clear to auscultation bilaterally and regular rate & rhythm Airway Mallampati: Class II Dentition: full Pulmonary None reported CV/HEM Coronary Artery Disease, Congestive Heart Failure and Hypertension EF 45%, leaky valve, negative stress test None reported Hepatic None reported GI None reported Metabolic None reported Musc/skel None reported Neuropsych Cerebrovascular Accident (left arm weakness, occured in 2002, pooelr balance) Anesthetic Plan ASA status: 4 Anesthesia: MAC Risk of > 500 ml blood loss (7ml/kg in children): No Medications/Allergies Home Medications Medication Instructions Recorded Confirmed Last Taken Type acetaminophen 650 mg 650 mg PO Q12H PRN 08/22/19 02/08/22 Unknown History tablet,extended release (Tylenol Arthritis Pain) coenzyme Q10 100 mg capsule (Co 100 mg PO DAILY@1800 08/22/19 02/08/22 01/27/22 History Q-10) lactobacillus combination no.4 3 3,000 mmu cells PO DAILY 06/21/20 02/08/22 01/28/22 History billion cell capsule (Probiotic) multivitamin (Multiple Vitamins) 1 tab PO BID@06/21/20 02/08/22 01/28/22 History niacinamide 500 mg tablet 500 mg PO DAILY@1800 07/01/20 02/08/22 01/27/22 History potassium gluconate 595 mg (99 mg) 595 mg PO DAILY tab 08/21/21 02/08/22 01/28/22 History tablet Cardio [place] 1 tab PO BID 01/28/22 02/08/22 01/28/22 History aspirin 325 mg tablet 325 mg PO DAILY #60 tab 01/28/22 02/08/22 01/28/22 Rx furosemide 40 mg tablet 40 mg PO EVERY OTHER DAY 01/28/22 02/08/22 01/28/22 History lisinopril 20 mg tablet 20 mg PO DAILY 01/28/22 02/08/22 01/28/22 History simvastatin 10 mg tablet 10 mg PO BEDTIME 01/28/22 02/08/22 01/27/22 History spironolactone 25 mg tablet 12.5 mg PO EVERY OTHER DAY 01/28/22 02/08/22 01/28/22 History Allergies Allergy/AdvReac Type Severity Reaction Status Date / Time metoprolol AdvReac ALGY-Difficulty Verified 08/21/21 13:48 Breathing Current Medications Generic Name Dose Route Start Last Admin Trade Name Freq PRN Reason Stop Dose Admin Atorvastatin Calcium 20 mg 02/08/22 21:00 02/08/22 20:03 Atorvastatin 40 Mg Tablet PO 20 mg BEDTIME LUCINA Administration Pantoprazole Sodium 40 mg 02/08/22 09:00 02/09/22 08:06 Pantoprazole 40 Mg Sdv IVP 40 mg BID LUCINA Administration PFS Anesthesia Medical History CHF (congestive heart failure), NYHA class III Chronic neck pain Dyslipidemia History of nonmelanoma skin cancer History of stroke Left side weakness Hypertension Spinal osteoarthritis Surgical History History of carpal tunnel surgery right year 1999 History of hernia repair 1983,1987,1997 History of hip replacement, total bilateral History of neck surgery 2012 History of prostatectomy History of shoulder surgery right History of transurethral resection of prostate Family History Other Cancer Hypertension Social History Second hand smoke exposure: No Smoking risk assessment/counseling performed?: No Alcohol intake: never Desire information about alcohol rehabilitation?: No Counseling given: No Desire information about substance/drug rehabilitation?: No Counseling given: No Caregiver/support person: No Lives independently: Yes Household members: spouse Housing: House Marital status: service: No Current occupational status: employed Current occupation: [employer] Pets and animals: Yes History of recent travel: No Current gender identity: Male Data Anesthesia : 02/09/22 04:28 02/09/22 04:28 Short CBC 02/07/22 02/08/22 02/09/22 Range/Units 20:35 04:20 04:28 WBC 5.3 3.7 L 3.1 L (4.0-10.0) 10^3/uL Hgb 11.3 L 9.3 L 9.1 L (11.7-16.6) g/dL Hct 32.8 L 27.1 L 26.4 L (42.0-52.0) % MCV 98.8 H 97.8 H 98.9 H (80-94) fl Plt Count 141 117 L 130 (130-400) 10^3/cmm Neut % (Auto) 71.3 55.6 52.0 % Neut # (Auto) 3.79 2.07 1.60 L (1.8-7.7) 10^3/uL BMP 02/07/22 02/08/22 02/09/22 20:35 04:20 04:28 Sodium 137 140 139 Potassium 4.7 4.1 4.1 Chloride 102 109 H 109 H Carbon Dioxide 26 24 24 BUN 63 H 53 H 32 H Creatinine 0.8 0.6 L 0.7 Glucose 129 H 95 88 Calcium 9.4 8.3 L 7.7 L Cardiac Enzymes 02/07/22 02/07/22 02/07/22 Range/Units 20:35 20:35 22:15 Troponin T Baseline 30 H (0-15) ng/L Troponin T 120 Minute 21.62 H (0-15) ng/L Delta Troponin T -8.38 L (0-10) ABS# NT-Pro-B Natriuret Pep 824 H (0-450) pg/mL Liver Function 02/07/22 02/08/22 Range/Units 20:35 04:20 Total Bilirubin 0.9 0.9 (0.15-1.2) mg/dL AST 20 13 (0-40) U/L ALT 18 13 (0-41) U/L Alkaline Phosphatase 42 35 L (40-130) IU/L Albumin 3.9 3.2 L (3.5-5.2) g/dL Urine 02/07/22 Range/Units 20:39 Urine Color Yellow (Yellow) Urine Appearance Clear (CLEAR) Urine pH 6 (5-7) Ur Specific [place] 1.020 (1.005-1.030) Urine Protein Neg (Negative) Urine Glucose (UA) Norm (Normal) Urine Ketones Negative (Negative) Urine Nitrate Negative (Negative) Urine Bilirubin Neg (Negative) Ur Leukocyte Esterase Negative (Negative) Blood Bank 02/07/22 21:25 Blood Type A Positive Rho(D) Type Positive Antibody Screen Negative [place] 02/07/22 02/08/22 20:35 04:20 PT 14.50 14.80 INR 1.09 1.12 APTT 31.1 Cardiac Studies: Echocardiogram Limited Views 03/08/20 Echocardiogram Ultrasound 12/26/20 Sestamibi Stress Test (Cardiology) 01/17/21
--- NOTE | 2022-02-09 14:59 | ANE.PACU2 ---
Inpatient post-anesthesia follow up: Airway intact: Yes Vital signs: Temperature 97.1 F Pulse Rate 64 Respiratory Rate 18 Blood Pressure 132/67 Pulse Oximetry 98 Oxygen Delivery Me thod Room Air Oxygen Flow Rate Fraction of Inspir ed Oxygen Hydration adequate: Yes Nausea and vomiting: No Pain level: 1 Mental status: Baseline
[2022-02-09] MEDS: sodium chloride 0.9% 1,000 ML 30 ML IV ×2 (15:15→16:29)
--- NOTE | 2022-02-09 16:52 | W.PM.OPSFHP ---
Same Day Surgery H&P Indication for Procedure/HPI DATE OF PROCEDURE: February 09, 2022 CHIEF COMPLAINT/INDICATIONFOR SURGICAL PROCEDURE: bleeding PREOP DIAGNOSIS: Blood loss anemia PLANNED PROCEDURE: Operation Date: 02/09/22 13:30 Proposed Procedures p EGD(Not Applicable) - Jaxson Silva MD s Colonoscopy(Not Applicable) - Jaxson Silva MD Medications/Allergies* Home Medications Medication Instructions Recorded Confirmed Type acetaminophen 650 mg 650 mg PO Q12H PRN 08/22/19 02/08/22 History tablet,extended release (Tylenol Arthritis Pain) coenzyme Q10 100 mg capsule (Co 100 mg PO DAILY@1800 08/22/19 02/08/22 History Q-10) lactobacillus combination no.4 3 3,000 mmu cells PO DAILY 06/21/20 02/08/22 History billion cell capsule (Probiotic) multivitamin (Multiple Vitamins) 1 tab PO BID@06,18 06/21/20 02/08/22 History niacinamide 500 mg tablet 500 mg PO DAILY@1800 07/01/20 02/08/22 History potassium gluconate 595 mg (99 mg) 595 mg PO DAILY tab 08/21/21 02/08/22 History tablet Cardio [place] 1 tab PO BID 01/28/22 02/08/22 History furosemide 40 mg tablet 40 mg PO EVERY OTHER DAY 01/28/22 02/08/22 History lisinopril 20 mg tablet 20 mg PO DAILY 01/28/22 02/08/22 History simvastatin 10 mg tablet 10 mg PO BEDTIME 01/28/22 02/08/22 History spironolactone 25 mg tablet 12.5 mg PO EVERY OTHER DAY 01/28/22 02/08/22 History Allergies/Adverse Reactions Allergy/AdvReac Type Severity Reaction Status Date / Time metoprolol AdvReac ALGY-Difficulty Verified 08/21/21 13:48 Breathing Current Medications: Generic Name Dose Route Start Last Admin Trade Name Freq PRN Reason Stop Dose Admin Atorvastatin Calcium 20 mg 02/08/22 21:00 02/08/22 20:03 Atorvastatin 40 Mg Tablet PO 20 mg BEDTIME LUCINA Administration Sodium Chloride 1,000 mls @ 30 mls/hr 02/08/22 09:15 02/09/22 16:29 Sodium Chloride 0.9% IV Not Given .Q24H LUCINA Sodium Chloride 1,000 mls @ 30 mls/hr 02/09/22 13:15 02/09/22 16:29 Sodium Chloride 0.9% IV 02/10/22 13:14 30 mls/hr .Q24H LUCINA Administration Pantoprazole Sodium 40 mg 02/08/22 09:00 02/09/22 08:06 Pantoprazole 40 Mg Sdv IVP 40 mg BID LUCINA Administration Pertinent History/Comorbid Conditions* Medical History (Updated 02/08/22 @ 09:03 by Jaxson Silva MD) CHF (congestive heart failure), NYHA class III Chronic neck pain Dyslipidemia History of nonmelanoma skin cancer History of stroke Left side weakness Hypertension Spinal osteoarthritis Surgical History (Updated 10/12/19 @ 16:34 by SUZE Chairez-C) History of carpal tunnel surgery right year 1999 History of hernia repair 1983,1987,1997 History of hip replacement, total bilateral History of neck surgery 2011 History of prostatectomy History of shoulder surgery right History of transurethral resection of prostate Family History (Updated 08/22/19 @ 13:27 by Oriana Ashraf LPN) Cancer Hypertension Social History Second hand smoke exposure: No Smoking risk assessment/counseling performed?: No Alcohol intake: never Desire information about alcohol rehabilitation?: No Counseling given: No Desire information about substance/drug rehabilitation?: No Counseling given: No Caregiver/support person: No Lives independently: Yes Household members: spouse Housing: House Marital status: service: No Current occupational status: employed Current occupation: [employer] Pets and animals: Yes History of recent travel: No Current gender identity: Male Pertinent Exam Findings alert, oriented x 3, clear to auscultation bilaterally, regular rate & rhythm, operative site marked and procedure specific exam findings Recommendations Surgery/Procedure today Coding Level of Care Code Acute Signal Intelligence/Electronic Warfare for [facility]
--- NOTE | 2022-02-09 17:18 | P.PN_ITS ---
Subjective Subjective: No cramps overnight. Seen with family at bedside. Awaiting EGD in the morning. Has remained hemodynamically stable on room air. Denies any further melena or abdominal pain. Vitals/I&O/Wt Last Vital Signs Temp 97.3 F L 02/09/22 14:56 Pulse 73 02/09/22 15:15 Resp 18 02/09/22 15:15 BP 105/54 02/09/22 15:15 Pulse Ox 100 02/09/22 15:15 02/09/22 02/09/22 02/09/22 06:59 14:59 22:59 Output Total 200 / 200 Balance -200 / -200 Weight last 48 hrs Weight 61.235 kg Physical Exam Narrative: General: Alert oriented x3, patient seen laying in bed appearing comfortable at this time with at bedside, frail elderly appearing male, no acute distress HEENT: Normocephalic, atraumatic, EOMI, breathing normally Cardio: Regular rate rhythm, normal S1-S2, Respiratory: Good bilateral air entry, no wheezes no rhonchi appreciated GI: Abdomen soft, nontender overall with very mild tenderness in epigastric region reproducible to palpation, nondistended, bowel sounds + Behavior: Appropriate and cooperative Extremities: Lower extremity edema, no cyanosis Neuro: Left-sided hemiparesis from previous stroke Data : 02/09/22 04:28 02/09/22 04:28 A&P Assessment and plan (1) Anemia due to GI blood loss: Hemoglobin currently stable at 9. Transfuse if less than 8. Most likely secondary to gastritis. Plan for EGD/colonoscopy today. Appreciate Dr. Silva's recommendation. Check iron panel. Start on oral supplementation. Protonix twice daily, Carafate before meals and at bedtime. Repeat hemoglobin in evening. Status: Acute (2) Dyslipidemia: Status: Chronic (3) Hypertension: Status: Chronic Qualifiers: Hypertension type: essential hypertension Qualified Code(s): I10 - Esse ntial (primary) hypertension (4) History of stroke: Hold off on aspirin for now given GI bleed. Status: Acute (5) Gastritis: Status: Acute Plan N.p.o. for EGD/colonoscopy. Protonix will suffice for PUD prophylaxis. SCDs for DVT prophylaxis, hold off on medical prophylaxis given anemia. Attestations 2 Medical Necessity Statement*: Requires further hospitalization for further evaluation and management of anemia secondary to GI bleed. Time Spent in Patient Care: Greater than 35 minutes Coding Level of Care Code Acute Acid Washer Operator for [facility] Fwd Diagnoses Anemia due to GI blood loss D50.0 Dyslipidemia E78.5 Hypertension I10 Hypertension type: essential hypertension History of stroke Z86.73 Gastritis K29.70
[2022-02-09] MEDS: ferrous gluconate 324 mg Tablet PO (17:36)
[2022-02-09 19:00] LABS: Hematocrit 29.4 % (42.0-52.0); Hemoglobin 9.9 g/dL (11.7-16.6)
[2022-02-09 20:23] LABS: H. Pylori IgG Antibody Negative (Negative)
[2022-02-09] MEDS: atorvastatin 40 mg Tablet 20 MG PO (21:51)
[2022-02-09] MEDS: sucralfate 1 gm/10 mL Oral Liq UDC PO (21:51)
[2022-02-10] VITALS: BP 107/67; PULSE 70; RESP 18; TEMP 36.5; O2SAT 96
[2022-02-10 04:00] VITALS: BP 122/70; PULSE 61; RESP 18; TEMP 36.5; O2SAT 100
[2022-02-10 04:56] LABS: Basophils % 0.4 %; Eosinophils % 1.1 %; Hematocrit 27.6 % (42.0-52.0); Hemoglobin 9.4 g/dL (11.7-16.6); Lymphocytes # 0.9 10^3/uL (0.8-4.8); Lymphocytes % 33.5 %; Mean Corpuscular HGB Conc 34.1 g/dL (30.0-36.0); Mean Corpuscular Hemoglobin 33.6 pg (28.0-34.0); Mean Corpuscular Volume 98.6 fl (80-94); Mean Platelet Volume 9.9 fL (7.4-10.4); Monocytes # 0.5 10^3/uL (0.2-0.9); Monocytes % 17.1 %; Neutrophils # 1.25 10^3/uL (1.8-7.7); Neutrophils % 47.5 %; Nucleated Red Blood Cells % 0 %; Platelet Count 131 10^3/cmm (130-400); Red Cell Distribution Width 13.8 % (12.1-15.1); White Blood Count 2.6 10^3/uL (4.0-10.0)
[2022-02-10 05:19] LABS: Alanine Aminotransferase 13 U/L (0-41); Albumin Level 3.4 g/dL (3.5-5.2); Alkaline Phosphatase 39 IU/L (40-130); Anion Gap 10.2 (5-19); Aspartate Amino Transferase 15 U/L (0-40); Blood Urea Nitrogen 23 mg/dL (8-23); Calcium 8.2 mg/dL (8.5-10.5); Carbon Dioxide 26 mmol/L (22-29); Chloride 111 mmol/L (98-107); Chol HDL Ratio 2.77 mg/dL (1.0-5.00); Cholesterol 119 mg/dL (0-200); Glucose 92 mg/dL (65-115); HDL Cholesterol 43 mg/dL (60-100); LDL Cholesterol Calculated 62 mg/dL (50-129); Osmolality Calculated 299 mOsm/kg (285-295); Potassium 4.2 mmol/L (3.5-5.1); Sodium 143 mmol/L (136-145); Total Bilirubin 1.3 mg/dL (0.15-1.2); Total Protein 5.4 g/dL (6.6-8.7); Triglycerides 68 mg/dL (0-150); VLDL Cholestrol Calculation 14 mg/dL (0-30)
[2022-02-10 05:29] LABS: Estmated Average Glucose 103; Hemoglobin A1C 5.2 % (4.0-6.0)
[2022-02-10] MEDS: sucralfate 1 gm/10 mL Oral Liq UDC PO ×2 (06:36→13:18)
[2022-02-10 08:00] VITALS: BP 122/65; PULSE 65; RESP 16; TEMP 36.6; O2SAT 98
[2022-02-10] MEDS: ferrous gluconate 324 mg Tablet PO (09:28)
--- NOTE | 2022-02-10 10:27 | P.DS_ITS ---
Discharge Providers Date of Admission: 02/07/22 22:02 Date of Discharge: February 10, 2022 Attending Provider at Admission: Tay Wolf MD Attending Provider at Discharge: Boris Schaeffer MD Consults: Dr. Silva Primary Care Provider: PRIYA Chairez Diagnoses at Discharge Discharge Diagnosis (1) Anemia due to GI blood loss: Status: Acute (2) Dyslipidemia: Status: Chronic (3) Hypertension: Status: Chronic Qualifiers: Hypertension type: essential hypertension Qualified Code(s): I10 - Essential (primary) hypertension (4) History of stroke: Status: Acute Permanent problem details: Left side weakness (5) Gastritis: Status: Acute Reason for Visit Reason for Visit: fall/weakness/low bp/SOB/bloody stool/abd pain Hospital Course Hospital Course Silvio Chavira is a 86 year old male who began having diarrhea of dark stool and also bright red blood yesterday.? He said quite a bit of diarrhea.? He is got some epigastric discomfort and also lower abdominal discomfort.? He had an EGD in 2019 which revealed peptic ulcer disease.? For some reason he is not on proton pump inhibitor or H2 cece therapy.? Of note, he does not take NSAIDs but does take aspirin. Patient underwent EGD and colonoscopy on 02/09. Endoscopy showed multiple linear chronic benign appearing ulcers in the prepyloric region without any signs of bleeding. Esophagus and duodenum were within normal limits. Colonoscopy showed large amount of altered blood along with small amount of solid stool. Procedure was terminated due to copious amount of melanotic stool. It is believed patient's symptoms are secondary to upper GI bleed secondary to chronic gastritis. He has been discharged in hemodynamically stable condition on advised to stop full dose aspirin, restart baby aspirin in 2 weeks, continue taking Protonix 2 times a day, take Carafate for next 4 weeks. He is advised to follow-up with his primary care provider within next 1 week for repeat CBC. He is to take oral iron supplementation going forward. 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 COPD morphology of the chest. 2. No acute findings.Non acute findings as described above. Abdomen/Pelvis CTA 02/07/22 20:29 IMPRESSION: 1. Colonic constipation is present. 2. 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 3. There is atherosclerotic plaque in the proximal left renal artery with mnej-si-lciapsyc stenosis. 4. Prostate and rectal region is obscured by artifact from the bilateral total hip replacements. Laboratory Results WBC 2.6 10^3/uL (4.0-10.0) L 02/10/22 04:18 RBC 2.80 10^6/uL (4.1-5.3) L 02/10/22 04:18 Hgb 9.4 g/dL (11.7-16.6) L 02/10/22 04:18 Hct 27.6 % (42.0-52.0) L 02/10/22 04:18 MCV 98.6 fl (80-94) H 02/10/22 04:18 MCH 33.6 pg (28.0-34.0) 02/10/22 04:18 MCHC 34.1 g/dL (30.0-36.0) 02/10/22 04:18 RDW 13.8 % (12.1-15.1) 02/10/22 04:18 Plt Count 131 10^3/cmm (130-400) 02/10/22 04:18 MPV 9.9 fL (7.4-10.4) 02/10/22 04:18 Neut % (Auto) 47.5 % 02/10/22 04:18 Lymph % (Auto) 33.5 % 02/10/22 04:18 [place] % (Auto) 17.1 % 02/10/22 04:18 Eos % (Auto) 1.1 % 02/10/22 04:18 Baso % (Auto) 0.4 % 02/10/22 04:18 Neut # (Auto) 1.25 10^3/uL (1.8-7.7) L 02/10/22 04:18 Lymph # (Auto) 0.9 10^3/uL (0.8-4.8) 02/10/22 04:18 [place] # (Auto) 0.5 10^3/uL (0.2-0.9) 02/10/22 04:18 Eos # (Auto) 0.0 10^3/uL (0.0-0.8) 02/10/22 04:18 Baso # (Auto) 0.0 10^3/uL (0.0-0.1) 02/10/22 04:18 Nucleated RBC % (auto) 0 % 02/10/22 04:18 Nucleated RBCs # 0.0 /100WBC 02/10/22 04:18 PT 14.80 SECONDS (12.1-14.9) 02/08/22 04:20 INR 1.12 (0.8-1.2) 02/08/22 04:20 APTT 31.1 SECONDS (23.9-36.7) 02/07/22 20:35 Sodium 143 mmol/L (136-145) 02/10/22 04:18 Potassium 4.2 mmol/L (3.5-5.1) 02/10/22 04:18 Chloride 111 mmol/L (98-107) H 02/10/22 04:18 Carbon Dioxide 26 mmol/L (22-29) 02/10/22 04:18 Anion Gap 10.2 (5-19) 02/10/22 04:18 BUN 23 mg/dL (8-23) 02/10/22 04:18 Creatinine 0.8 mg/dL (0.7-1.2) 02/10/22 04:18 GFR Calculation Not Reportable 02/10/22 04:18 Glucose 92 mg/dL (65-115) 02/10/22 04:18 Estimat Average Glucose 103 02/10/22 04:18 Hemoglobin A1c 5.2 % (4.0-6.0) 02/10/22 04:18 Calculated Osmolality 299 mOsm/kg (285-295) H 02/10/22 04:18 Lactate 1.1 mmol/L (0.5-2.2) 02/07/22 20:35 Calcium 8.2 mg/dL (8.5-10.5) L 02/10/22 04:18 Iron 102 ug/dL (59-158) 02/09/22 04:28 TIBC 192 mcg/dl 02/09/22 04:28 % Saturation 53.1 % (20-50) H 02/09/22 04:28 Unsat Iron Binding 90 ug/dL (112-347) L 02/09/22 04:28 Total Bilirubin 1.3 mg/dL (0.15-1.2) H 02/10/22 04:18 AST 15 U/L (0-40) 02/10/22 04:18 ALT 13 U/L (0-41) 02/10/22 04:18 Alkaline Phosphatase 39 IU/L (40-130) L 02/10/22 04:18 Troponin T Baseline 30 ng/L (0-15) H 02/07/22 20:35 Troponin T 120 Minute 21.62 ng/L (0-15) H 02/07/22 22:15 Delta Troponin T -8.38 ABS# (0-10) L 02/07/22 22:15 NT-Pro-B Natriuret Pep 824 pg/mL (0-450) H 02/07/22 20:35 Total Protein 5.4 g/dL (6.6-8.7) L 02/10/22 04:18 Albumin 3.4 g/dL (3.5-5.2) L 02/10/22 04:18 Globulin 2.0 g/dL (1.3-4.6) 02/10/22 04:18 Triglycerides 68 mg/dL (0-150) 02/10/22 04:18 Cholesterol 119 mg/dL (0-200) 02/10/22 04:18 LDL Cholesterol, Calc 62 mg/dL (50-129) 02/10/22 04:18 Total VLDL Cholesterol 14 mg/dL (0-30) 02/10/22 04:18 HDL Cholesterol 43 mg/dL (60-100) L 02/10/22 04:18 Cholesterol/HDL Ratio 2.77 mg/dL (1.0-5.00) 02/10/22 04:18 Lipase 25 U/L (13-60) 02/07/22 20:35 TSH 6.70 uIU/mL (0.27-4.20) H 02/09/22 04:28 Urine Color Yellow (Yellow) 02/07/22 20:39 Urine Appearance Clear (CLEAR) 02/07/22 20:39 Urine pH 6 (5-7) 02/07/22 20:39 Ur Specific [place] 1.020 (1.005-1.030) 02/07/22 20:39 Urine Protein Neg (Negative) 02/07/22 20:39 Urine Glucose (UA) Norm (Normal) 02/07/22 20:39 Urine Ketones Negative (Negative) 02/07/22 20:39 Urine Blood Neg (Negative) 02/07/22 20:39 Urine Nitrate Negative (Negative) 02/07/22 20:39 Urine Bilirubin Neg (Negative) 02/07/22 20:39 Urine Urobilinogen Norm mg/dL (Negative) 02/07/22 20:39 Ur Leukocyte Esterase Negative (Negative) 02/07/22 20:39 H. pylori IgG Antibody Negative (Negative) 02/09/22 18:40 Blood Type A Positive 02/07/22 21:25 Rho(D) Type Positive 02/07/22 21:25 Antibody Screen Negative 02/07/22 21:25 Vitals Last Vital Signs Temp 97.8 F 02/10/22 08:00 Pulse 65 02/10/22 08:00 Resp 16 02/10/22 08:00 BP 122/65 02/10/22 08:00 Pulse Ox 98 02/10/22 08:00 Discharge Plan Discharge Patient Disposition: Home Condition: Stable Prescriptions: New ferrous gluconate 324 mg (37.5 mg iron) Tablet 324 mg PO BIDWM Qty: 60 0RF Protonix 40 mg tablet,delayed release (DR/EC) 40 mg PO Q12H 30 Days Qty: 60 0RF Carafate 1 gram tablet 1 g PO TID 28 Days Qty: 84 0RF Adult Low Dose Aspirin 81 mg tablet,delayed release (DR/EC) 81 mg PO DAILY Qty: 30 0RF Continued coenzyme Q10 [Co Q-10] 100 mg capsule 100 mg PO DAILY@1800 0RF acetaminophen [Tylenol Arthritis Pain] 650 mg tablet extended release 650 mg PO Q12H PRN (Reason: pain) 0RF niacinamide 500 mg tablet 500 mg PO DAILY@1800 0RF potassium gluconate 595 mg (99 mg) tablet 595 mg PO DAILY 0RF multivitamin [Multiple Vitamins] Tablet 1 tab PO BID@,18 0RF Probiotic 3 billion cell Capsule 3,000 mmu cells PO DAILY 0RF Cardio [place] 1 tab PO BID 0RF furosemide 40 mg tablet 40 mg PO EVERY OTHER DAY 0RF simvastatin 10 mg tablet 10 mg PO BEDTIME 0RF Changed lisinopril 20 mg tablet 10 mg PO DAILY Qty: 0 0RF Discontinued aspirin 325 mg tablet 325 mg PO DAILY Qty: 60 2RF spironolactone 25 mg tablet 12.5 mg PO EVERY OTHER DAY 0RF Discharge Orders: Discharge Order (Routine); Ordered 02/10/22 Ordered By: Boris Schaeffer Referrals: Madelin Bellamy FNP-C [Primary Care Provider] - 02/25/22 10:20 am Patient Instructions: Iron Supplements (By mouth), Sucralfate (By mouth), Aspirin (By mouth), Pantoprazole (By mouth), Gastritis (GEN), GI Discharge Instructions, Opioid Safety Activity Restrictions/Additional Instructions: Start baby aspirin in 2 weeks. Take Protonix which is the antacid PPI morning evening. Take Carafate morning evening and night 3 times a day for next 4 weeks. Stop full dose aspirin. Please follow-up with a primary care provider within next 1 week for repeat CBC. Please take [id number] stool softener senna Colace twice daily till you have at least 2-3 good bowel movements a day. Dose of lisinopril has been decreased to 10 mg daily. Do not take spironolactone for now. Discharge Attestations Time Spent in Discharge Care*: greater than 30 min Specific Discharge Activities: educating patient, discussing with pcp/other providers, discussing with case therapist/social workers/dc planners, documenting/other paperwork and evaluating patient/reviewing data Status at Discharge: Cognitive status at discharge: cognitively intact , Behavioral status at discharge: cooperative , Functional status at discharge: independent ambulation , Overall status at discharge: patient is back to baseline Quality Metrics Clinical Quality Measures [ No reported AMI, CVA or VTE this stay] Coding Level of Care Code Acute Chg FW DC note Diagnoses Anemia due to GI blood loss D50.0 Dyslipidemia E78.5 Hypertension I10 Hypertension type: essential hypertension History of stroke Z86.73 Gastritis K29.70
[2022-02-10 11:32] VITALS: BP 134/71; PULSE 89; RESP 18; TEMP 36.4; O2SAT 97
--- NOTE | 2022-02-10 12:47 | PC.SOCIAL ---
IMM Update pg 2 of IMM updated and reviewed w/ patient. Copy provided and copy placed in chart.
== END 2022-02-10 13:00 | disposition home or self-care (01) ==
LOC: ER 21:46 → MEDSURG 22:22
PROVIDERS: Internal Medicine; Admitting Provider Internal Medicine; Emergency Provider Emergency Medicine; PCP Nurse Practitioner; Visit Provider Student in an Organized Health Care Education/Training Program
PROC: 0DJ08ZZ Inspection of Upper Intestinal Tract, Via Natural or Artificial Opening Endoscopic (ICD-10-PCS; CPT 43235; principal; 2022-02-09 13:30)
PROC: 0DJD8ZZ Inspection of Lower Intestinal Tract, Via Natural or Artificial Opening Endoscopic (ICD-10-PCS; CPT 45378; 2022-02-09 13:30)
DX: D50.0 Iron deficiency anemia secondary to blood loss (chronic) (principal); E78.5 Hyperlipidemia, unspecified; Z86.73 Personal history of transient ischemic attack (TIA), and cerebral infarction without residual deficits; K29.70 Gastritis, unspecified, without bleeding; Z87.11 Personal history of peptic ulcer disease; I11.0 Hypertensive heart disease with heart failure; I50.22 Chronic systolic (congestive) heart failure; I49.3 Ventricular premature depolarization; I35.1 Nonrheumatic aortic (valve) insufficiency; I45.2 Bifascicular block; R06.02 Shortness of breath; M47.12 Other spondylosis with myelopathy, cervical region; G56.21 Lesion of ulnar nerve, right upper limb; Z85.828 Personal history of other malignant neoplasm of skin; Z79.82 Long term (current) use of aspirin
CPT/HCPCS: 36415; 43235; 45330; 71045; 74174; 80048; 80053; 80061; 81003; 83036; 83540; 83550; 83605; 83690; 83880; 84443; 84484; 85014; 85018; 85025; 85610; 85730; 86677; 86850; 86900; 93005; 96361; 96374; 99285; C9113; G0378; J2704; J7030; Q9967

== ENCOUNTER → 2022-03-30 16:17 | Outpatient (BNVA) | payer MEDICARE, SELFPAY | PROVIDERS: PCP Nurse Practitioner; Visit Provider Internal Medicine Cardiovascular Disease | DX: R06.02 Shortness of breath (principal); I10 Essential (primary) hypertension; I50.9 Heart failure, unspecified | CPT/HCPCS: 80053; 83735; 83880; 85025; 99214 ==

== ENCOUNTER → 2022-04-01 10:01 | Outpatient (BNVA) | payer MEDICARE, SELFPAY | PROVIDERS: PCP Nurse Practitioner; Visit Provider Internal Medicine Cardiovascular Disease | DX: I10 Essential (primary) hypertension (principal); R06.02 Shortness of breath; D50.0 Iron deficiency anemia secondary to blood loss (chronic) | CPT/HCPCS: 85025 ==

== ENCOUNTER → 2022-05-13 11:45 | Outpatient (BNVA) | payer MEDICARE, SELFPAY | PROVIDERS: PCP Nurse Practitioner; Visit Provider Nurse Practitioner | DX: D50.0 Iron deficiency anemia secondary to blood loss (chronic) (principal); I10 Essential (primary) hypertension; E61.1 Iron deficiency; E78.5 Hyperlipidemia, unspecified; I50.22 Chronic systolic (congestive) heart failure | CPT/HCPCS: 80053; 80061; 83550; 84443; 85025 ==

== ENCOUNTER → 2022-09-28 14:37 | Outpatient (BNVA) | payer MEDICARE, SELFPAY | PROVIDERS: PCP Nurse Practitioner; Visit Provider Internal Medicine Cardiovascular Disease | DX: I11.0 Hypertensive heart disease with heart failure (principal); I50.22 Chronic systolic (congestive) heart failure; E78.5 Hyperlipidemia, unspecified; I35.1 Nonrheumatic aortic (valve) insufficiency; I49.3 Ventricular premature depolarization; I45.2 Bifascicular block; Z86.73 Personal history of transient ischemic attack (TIA), and cerebral infarction without residual deficits | CPT/HCPCS: 99214; Q3014 ==

== ENCOUNTER → 2022-10-22 14:13 | Outpatient (BNVA) | payer MEDICARE, SELFPAY | PROVIDERS: PCP Nurse Practitioner; Visit Provider Nurse Practitioner Family | DX: R05.9 Cough, unspecified (principal); U07.1 COVID-19 | CPT/HCPCS: 87426 ==

== ENCOUNTER → 2023-01-13 16:19 | Outpatient (BNVA) | payer MEDICARE, SELFPAY | PROVIDERS: PCP Nurse Practitioner; Visit Provider Nurse Practitioner | DX: E78.5 Hyperlipidemia, unspecified (principal); E03.8 Other specified hypothyroidism; E55.9 Vitamin D deficiency, unspecified | CPT/HCPCS: 80053; 80061; 82306; 84443 ==

== ENCOUNTER 2023-03-23 06:18 | Emergency (ER) | payer MEDICARE, SELFPAY ==
[2023-03-23 06:23] VITALS: BP 131/96; PULSE 91; RESP 18; TEMP 36.6; O2SAT 92; BMI 19.6
--- NOTE | 2023-03-23 06:24 | XRR_ITS ---
PROCEDURE INFORMATION: Exam: XR Right Ribs with PA Chest Exam date and time: 03/23/2023 6:51 AM Age: 87 years old Clinical indication: Injury or trauma; Fall; Rib area; Blunt trauma (contusions or hematomas); Prior surgery; Surgery date: 6+ months; Surgery type: C spine TECHNIQUE: Imaging protocol: Radiologic exam of the right ribs with PA chest. Views: 3 views COMPARISON: CR XR chest 1V portable [id number] 02/07/2022 8:25 PM FINDINGS: Lungs: Unremarkable. No consolidation. Pleural spaces: Unremarkable. No pleural effusion. No pneumothorax. Heart/Mediastinum: Unremarkable. No cardiomegaly. Bones/joints: Unremarkable. XR/XR ribs RT mn 3V w CXR1V [id number] IMPRESSION: No acute findings.
--- NOTE | 2023-03-23 06:25 | ED_ITS ---
HPI - Fall General: Chief Complaint: Fall Stated Complaint: fall, rib pain Time Seen by Provider: 03/23/23 06:24 Source: patient Mode of arrival: ambulatory Limitations: no limitations History of Present Illness: 87-year-old male states he had fell 2 days ago he states he landed on a basket to his right ribs. He states been having pain in his right lower ribs since then it is very sharp in nature worse with movement and palpation. He denies any head injury states he does have neck pain but it is chronic in nature denies any change to his chronic neck pain. He has been amatory after the event with no problems. Associated symptoms-after fall: Reports chest pain; Denies abdominal pain, headache(s) or neck pain Review of Systems Const: Denies: fever(s) or chills ENMT: Denies: throat pain or dental pain Card: Reports: chest pain Resp: Denies: dyspnea GI: Denies: abdominal pain, nausea or vomiting Musc: Denies: neck pain or back pain Skin/Breast: Denies: rash Neuro: Denies: headache(s) PFS ED PFSH: Medical History (Updated 03/23/23 @ 07:24 by Yane Reed MD) Aortic regurgitation Bifascicular block Cervical spondylosis with myelopathy CHF (congestive heart failure), NYHA class III Chronic neck pain Dyslipidemia History of nonmelanoma skin cancer History of stroke Left side weakness Hypertension PVC (premature ventricular contraction) SOB (shortness of breath) on exertion Spinal osteoarthritis Ulnar nerve entrapment at right elbow Surgical History History of carpal tunnel surgery right year 1999 History of hernia repair 1983,1987,1997 History of hip replacement, total bilateral History of neck surgery 2012 History of prostatectomy History of shoulder surgery right History of transurethral resection of prostate Family History Other Cancer Hypertension Social History Smoking and tobacco status: never smoked Second hand smoke exposure: No Smoking risk assessment/counseling performed?: No Alcohol intake: never Desire information about alcohol rehabilitation?: No Counseling given: No Substance/Drug Use: never Desire information about substance/drug rehabilitation?: No Counseling given: No Caregiver/support person: No Lives independently: Yes Household members: spouse Housing: House Marital status: service: No Current occupational status: employed Current occupation: [employer] Pets and animals: Yes Do you think of yourself as: Straight/Heterosexual Current gender identity: Male Physical Exam Const: COMMON NORMALS: no acute distress, patient oriented x3 and healthy appearing HENMT: COMMON NORMALS: normocephalic and atraumatic HEAD & SCALP: normocephalic and atraumatic Eye: COMMON NORMALS: Equal, round and reactive pupils present and EOMs intact bilaterally PUPIL: Yes Equal, round and reactive pupils present Neck/C-Spine: COMMON NORMALS: full ROM and supple CERVICAL SPINE: No Cervical spine tenderness Chest: COMMONS NORMALS: normal inspection of the chest OTHER: point tender over right chest wall Resp: COMMON NORMALS: normal respiratory effort, No retractions, No use of accessory muscles and clear to auscultation bilaterally AUSCULTATION: clear to auscultation bilaterally Cardio: COMMON NORMALS: regular rate, regular rhythm and No murmurs present (Cardio) RATE: regular rate RHYTHM: regular rhythm GI: COMMON NORMALS: Normal to inspection, nondistended, normoactive bowel sounds present, Soft to palpation, non-tender and no masses PALPATION: Yes Soft to palpation Extremity: COMMON NORMALS: normal to inspection and full ROM Neuro: COMMON NORMALS: patient oriented x3, moves all extremities and no focal motor deficits Psych: COMMON NORMALS: mental status grossly normal, Normal thought process present and cooperative THOUGHT PROCESS: Normal thought process present Skin: COMMON NORMALS: no rashes or lesions noted and no wounds GENERAL SKIN EXAM: no rashes or lesions noted Course Vital Signs: Vital signs: Vital Signs Temperature 97.9 F 03/23/23 06:23 Pulse Rate 67 03/23/23 08:30 Respiratory Rate 16 03/23/23 08:30 Blood Pressure 111/64 03/23/23 08:30 Pulse Oximetry 95 03/23/23 08:30 Oxygen Delivery Me thod Room Air 03/23/23 08:30 MDM - Fall Medical Decision Making Patient presents here with right-sided rib contusion from a fall x-ray here is normal he is also had a little bit of pain over his right upper quadrant got a CT scan to make sure he did not have a liver lack showed no acute abnormalities does have some pleural effusions likely chronic he has no hypoxia here he is stable for discharge he is to follow-up with PCP and return if worsening Medical Records I reviewed the patient's medical records. Lab Data I reviewed the patient's lab results. Radiology Impressions Ribs X-Ray 03/23/23 06:24 IMPRESSION: No acute findings. Cervical Spine X-Ray 03/23/23 06:42 IMPRESSION: Postop anterior fusion of C4 through C7 levels. No complicating process. Abdomen/Pelvis CT 03/23/23 07:45 IMPRESSION: 1. Bilateral pleural effusions. 2. Increased stool in the cecum. 3. Atherosclerotic change of the abdominal vasculature. 4. Indeterminate low-density lesions in the liver Discharge Plan Discharge Patient Disposition: Home Clinical Impression: Right-sided chest wall pain, Fall Condition: Stable Prescriptions: New hydrocodone-acetaminophen 5-325 mg tablet 1 tab PO Q6H PRN (Reason: pain) Qty: 8 0RF No Action cholecalciferol (vitamin D3) 125 mcg (5,000 unit) capsule 125 mcg PO DAILY PRN acetaminophen [Tylenol Arthritis Pain] 650 mg tablet extended release 650 mg PO Q12H PRN (Reason: pain) coenzyme Q10 60 mg tablet 60 mg PO DAILY lisinopril 20 mg tablet 20 mg PO DAILY Qty: 90 1RF simvastatin 10 mg tablet 10 mg PO BEDTIME Qty: 90 1RF Hold Instructions: Home Medication placed on hold at Doctor's office mupirocin 2 % ointment 1 applic topical BID Qty: 22 0RF levothyroxine [Synthroid] 25 mcg tablet 25 mcg PO DAILY Qty: 90 1RF naproxen 250 mg tablet 250 mg PO BID PRN ascorbic acid (vitamin C) 500 mg tablet 500 mg PO DAILY vitamin B complex [B Complex-Vitamin B12] Tablet 1 tab PO DAILY NuFlexol PO spironolactone 25 mg tablet 25 mg PO DAILY Qty: 90 1RF furosemide 20 mg tablet 20 - 40 mg PO DAILY PRN (Reason: edema) Qty: 180 3RF Probiotic 3 billion cell Capsule 3,000 mmu cells PO DAILY multivitamin [Multiple Vitamins] Tablet 1 tab PO TID Cardio [place] 1 tab PO BID Discharge Orders: Discharge ED (Routine); Ordered 03/23/23 Ordered By: Korby Derek Referrals: Madelin Bellamy, CAR DESIGNER-C [Primary Care Provider] - 1-3 days Discharge Diet: Advance as tolerated Discharge Activity: Resume usual activity Patient Instructions: Chest Wall Pain (ED) Coding Level of Care Code ED [employer] Helper for Kamilla Johnson
[2023-03-23] MEDS: HYDROcodone-acetaminophen 5-325 mg Tablet 1 TAB PO (06:29)
[2023-03-23 06:31] VITALS: BP 131/96; PULSE 88; RESP 16; O2SAT 93
--- NOTE | 2023-03-23 06:42 | XRR_ITS ---
PROCEDURE INFORMATION: Exam: XR Cervical Spine Exam date and time: 03/23/2023 6:56 AM Age: 87 years old Clinical indication: Injury or trauma; Fall; Blunt trauma; Prior surgery; Surgery date: 6+ months; Surgery type: C spine TECHNIQUE: Imaging protocol: Radiologic exam of the cervical spine. Views: 2 or 3 views. COMPARISON: CR XR cervical spine 4-5V [id number] 09/12/2020 2:45 PM FINDINGS: Bones/joints: Postop anterior fusion of C4 through C7 levels. No evidence of fracture. Soft tissues: Unremarkable. XR/XR cervical spine 3V* [id number] IMPRESSION: Postop anterior fusion of C4 through C7 levels. No complicating process.
--- NOTE | 2023-03-23 07:45 | CTR_ITS ---
PROCEDURE INFORMATION: Exam: CT Abdomen And Pelvis Without Contrast Exam date and time: 03/23/2023 8:03 AM Age: 87 years old Clinical indication: Other: Hematuria TECHNIQUE: Imaging protocol: Computed tomography of the abdomen and pelvis without contrast. Radiation optimization: All CT scans at this facility use at least one of these dose optimization techniques: automated exposure control; mA and/or kV adjustment per patient size (includes targeted exams where dose is matched to clinical indication); or iterative reconstruction. REPORTING DATA: Count of CT and Cardiac NM exams in prior 12 months: This patient has received 0 known CTs and 0 known cardiac nuclear medicine studies in the 12 months prior to the current study. COMPARISON: CT angio abdomen pelvis [id number] 02/07/2022 9:19 PM RADIATION DOSE METRICS: Total DLP (mGy-cm): 373.03 FINDINGS: Pleural spaces: Bilateral pleural effusions. Liver: Stable low-density lesions in the liver Gallbladder and bile ducts: Normal. No calcified stones. No ductal dilation. Pancreas: Normal. No ductal dilation. Spleen: Normal. No splenomegaly. Adrenal glands: Normal. No mass. Kidneys and ureters: Normal. No hydronephrosis. Stomach and bowel: Increased stool within the cecum. Appendix: No evidence of appendicitis. Intraperitoneal space: Unremarkable. No free air. No significant fluid collection. Vasculature: Atherosclerotic change of the abdominal vasculature Lymph nodes: Unremarkable. No enlarged lymph nodes. Urinary bladder: Unremarkable as visualized. Reproductive: Unremarkable as visualized. Bones/joints: Bilateral hip prostheses. Degenerative change of the lumbar spine with straightening of the normal lumbar lordosis Soft tissues: Unremarkable. CT/CT abdomen pelvis wo con [id number] IMPRESSION: 1. Bilateral pleural effusions. 2. Increased stool in the cecum. 3. Atherosclerotic change of the abdominal vasculature. 4. Indeterminate low-density lesions in the liver
[2023-03-23 08:30] VITALS: BP 111/64; PULSE 67; RESP 16; O2SAT 95
[2023-03-23 08:54] VITALS: BP 111/64; PULSE 67; RESP 16; O2SAT 95
== END 2023-03-23 08:55 | disposition home or self-care (01) ==
PROVIDERS: Emergency Provider Emergency Medicine; PCP Nurse Practitioner
DX: R07.89 Other chest pain (principal); W19.XXXA Unspecified fall, initial encounter; I11.0 Hypertensive heart disease with heart failure; I50.9 Heart failure, unspecified; E78.5 Hyperlipidemia, unspecified; Z86.73 Personal history of transient ischemic attack (TIA), and cerebral infarction without residual deficits
CPT/HCPCS: 71101; 72040; 74176; 99284